=== PATIENT | female | born 1975 | race Caucasian/White ===

== ENCOUNTER 2017-01-29 17:22 | Inpatient (IN) | payer OTHER ==
[~2017-01-29] VITALS: Ht 165.1 cm; Wt 78.2 kg
[2017-01-29] MEDS ORDERED: LAMOTRIGINE25 M3 PO (18:03)
[2017-01-29] MEDS ORDERED: PRAZOSIN HCL2 M1 PO (18:03)
[2017-01-29] MEDS ORDERED: TRAZODONE HCL100 M1 PO (18:03)
[2017-01-29] MEDS ORDERED: LITHIUM CARBON450 M1 PO (18:04)
[2017-01-29] MEDS ORDERED: CLONAZEPAM0.5 M2 PO (18:04)
[2017-01-29] MEDS ORDERED: GABAPENTIN100 M2 PO (18:04)
[2017-01-29] MEDS ORDERED: QUETIAPINE FUMA50 M1 (18:05)
[2017-01-29] MEDS ORDERED: HYDROXYZINE HCL50 M2 (18:05)
[2017-01-29] MEDS ORDERED: BUPROPION XL150 MG (18:05)
[2017-01-29] MEDS ORDERED: GRISEOFULVIN U250 MG PO (18:06)
[2017-01-29] MEDS ORDERED: DAILY MULTIPLE1 EACH PO (18:07)
[2017-01-29] MEDS ORDERED: NICOTINE GUM4 MG PO (18:07)
--- NOTE | 2017-01-29 18:40 | ED PSYCHIATRIC COMPLAINT ---
See Addendum History of Present Illness General Chief Complaint: Psychiatric Related Complaint Stated Complaint: "I DONT FEEL GOOD" PSYCH COMPLAINT -SI/-HI Source: patient Exam Limitations: no limitations Vital Signs & Intake/Output Vital Signs & Intake/Output Vital Signs Date Time Temp Pulse Resp B/P B/P Pulse O2 O2 Flow FiO2 Mean Ox Delivery Rate 01/30 1606 98.8 105 18 119/80 100 Room Air 01/30 1200 97.9 98 18 126/93 98 Room Air 01/30 1013 97.9 99 18 129/69 99 01/30 0800 97.5 92 16 130/75 98 Room Air 01/30 0616 97.0 92 20 118/69 97 Room Air 01/30 0125 97.2 80 20 132/80 100 Room Air 01/29 2149 96.2 76 20 118/70 01/29 1943 97.3 72 20 122/80 01/29 1743 97.6 97 20 136/91 99 Room Air Room Air ED Intake and Output 01/30 0000 01/29 1200 Intake Total Output Total Balance Patient 185 lb Weight Weight Reported by Patient Measurement Method Allergies Coded Allergies: No Known Allergies (01/29/17) Reconcile Medications Bupropion HCl (Bupropion XL) (Unknown Strength) TAB.ER.24H (Unknown Dose) UNKNOWN (Reported) Clonazepam 0.5 MG TABLET 1 TAB PO DAILY NEEDED PRN ANXIETY (Reported) Gabapentin 100 MG CAPSULE 2 CAP PO TID MOOD (Reported) Griseofulvin Ultramicrosize 250 MG TABLET 2 TAB PO DAILY RINGWORM (Reported) Hydroxyzine HCl (hydrOXYzine HCl) (Unknown Strength) TABLET (Unknown Dose) UNKNOWN (Reported) Lamotrigine 25 MG TABLET 1 TAB PO BID MENTAL HEALTH (Reported) Roscoe Carbonate (Roscoe Carbonate ER) 450 MG TABLET.ER 1 TAB PO Q12H MENTAL HEALTH (Reported) Multivitamin (Daily Multiple Vitamin) 1 EACH TABLET 1 TAB PO DAILY SUPPLEMENT (Reported) Nicotine Polacrilex (Nicotine Gum) 4 MG GUM 1 GUM PO Q2H PRN SMOKING CESSATION (Reported) Prazosin HCl 2 MG CAPSULE 1 CAP PO QPM NIGHTMARES (Reported) Quetiapine Fumarate (Unknown Strength) TABLET (Unknown Dose) UNKNOWN ( Reported) Trazodone HCl 100 MG TABLET 2 TAB PO QPM SLEEP (Reported) Triage Note: PT TO ED "MY MEDS ARE NOT WORKING RIGHT NOW, I DON'T FEEL RIGHT", PT UNABLE TO RECALL NAME OF MEDICATIONS. Triage Nurses Notes Reviewed? yes Onset: Abrupt Duration: hour(s): Timing: recent history : No Patient currently breastfeeds: No HPI: 01/29/17 7:26 pm 41-year-old female presents to the emergency department complaining of not taking her meds being depressed and feeling suicidal. The patient states she has a history of bipolar disorder. She denies alcohol or illicit drug use. She does smoke cigarettes. The onset of symptoms have been abrupt, the duration is unclear, the severity is significant as her symptoms required her to come to the emergency department for care. (Param Wheeler DO) Past History Travel History Traveled to [facility] past 21 day No Medical History Any Pertinent Medical History? 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 No (Param Wheeler DO) Review of Systems Review of Systems Constitutional: Denies: fever. EENTM: Reports: no symptoms. Respiratory: Denies: short of breath. Cardiovascular: Reports: no symptoms. GI: Denies: abdominal pain. Genitourinary: Reports: no symptoms. Musculoskeletal: Reports: no symptoms. Skin: Reports: no symptoms. Neurological/Psychological: Reports: no symptoms. Hematologic/Endocrine: Reports: no symptoms. Immunologic/Allergic: Reports: no symptoms. (Param Wheeler DO) Physical Exam Physical Exam General Appearance: well developed/nourished, alert, awake, anxious Head: atraumatic, normal appearance Eyes: Bilateral: normal appearance, PERRL, EOMI. Ears, Nose, Throat: normal pharynx, normal ENT inspection Neck: normal inspection, supple Respiratory: normal breath sounds, chest non-tender Cardiovascular: regular rate/rhythm Gastrointestinal: non-tender Extremities: normal range of motion Neurological/Psychiatric: no motor/sensory deficits, awake, agitated Appearance/Memory/Insight: disheveled Behavoir/Eye Contact/Speech: cooperative Thoughts/Hallucinations: no apparent hallucination Skin: intact, normal color, warm/dry Cleared? (statement below) Yes SAD PERSONS SAD PERSONS Response Value Depression/Hopelessness? yes 2 Previous Attempts/Psych Care yes 1 Rational Thinking Loss? yes 2 Single//? yes 1 Social Support? has no support 1 Stated Future Intent? yes 2 Total 9 SAD PERSONS Done? yes (Param Wheeler DO) Progress Differential Diagnosis: drug intoxication, drug overdose, drug withdrawal Plan of Care: Orders Procedure Date/time Status Regular Diet 01/30 B Active Admit to inpatient 01/30 1726 Active Add-on Test (ER Only) 01/30 1039 Active ED CRISIS PSYCH CONSULT 01/30 0824 Active Continuous Observation Monitor 01/30 0700 Active Continuous Observation Monitor 01/30 0300 Active Continuous Observation Monitor 01/29 2300 Active Add-on Test (ER Only) 01/29 2238 Active LITHIUM 01/30 1940 Complete URINE 01/30 1904 Complete URINE DRUG SCREEN FOR ER ONLY 01/29 190 Complete ETHANOL 01/30 1904 Complete COMPREHENSIVE METABOLIC PANEL 01/30 1904 Complete CBC WITHOUT DIFFERENTIAL 01/30 1904 Complete Continuous Observation Monitor 01/29 190 Active Current Medications Sig/Adeline Start time Last Medication Dose Stop Time Status Admin Prazosin HCl 2 MG QPM 01/30 2200 UNVr (Minipress 2 Mg.) Trazodone HCl 200 MG QPM 01/30 2200 UNVr (Desyrel) Gabapentin 200 MG TID 01/30 2236 UNVr 01/30 (Neurontin) 165 Hydroxyzine HCl 50 MG TID 01/30 2236 UNVr 01/30 (Atarax) 165 Lamotrigine 25 MG BID 01/30 2236 UNVr 01/30 (LaMICtal) 1129 Laboratory Tests 01/29/171939: Anion Gap 10, Estimated GFR > 60, BUN/Creatinine Ratio 15.0, Glucose 86, Calcium 9.2, Total Bilirubin 0.7, AST 25, ALT 38, Alkaline Phosphatase 60, Total Protein 6.4, Albumin 3.8, Globulin 2.6, Albumin/Globulin Ratio 1.5, CBC w Diff NO MAN DIFF REQ, RBC 4.20, MCV 89.6, MCH 30.0, RDW 14.1, MPV 8.2, Gran % 57.6, Lymphocytes % 31.1, Monocytes % 9.4 H, Eosinophils % 1.3, Basophils % 0.6, Absolute Granulocytes 4.6, Absolute Lymphocytes 2.5, Absolute Monocytes 0.8 H, Absolute Eosinophils 0.1, Absolute Basophils 0, PUBS MCHC 33.5, Roscoe < 0.2 L , Serum Alcohol < 10.0 01/29/171917: Urine Opiates Screen < 100.00, Methadone Screen < 40, Barbiturate Screen < 60, Ur Phencyclidine Scrn < 6.00, Amphetamines Screen < 100, U Benzodiazepines Scrn < 85, Urine Cocaine Screen < 50, Urine Cannabis Screen 14.80 01/29/171903: Urine Test NEGATIVE 7:12 AM 01/30 PATIENT SIGNED OUT TO ME BY DR POWER. PENDING CRISIS DISPOSITION. (Alecia Phelan MD) Pre-Hospital EKG: none (Param Wheeler DO) Hand-Off Endorsed To: Alecia Phelan MD Endorsed Time: 0700 Pending: consult (Oracio Power MD) Departure Departure Disposition: STILL A PATIENT Condition: Stable Referrals: Unknown (PCP/Family) Departure Forms: Customer Survey General Discharge Information (Param Wheeler DO) Departure Time of Disposition: 1726 Clinical Impression Primary Impression: Depression Secondary Impressions: Bipolar 1 disorder with moderate trisha Psych Admission Note Psychiatric Admission: I have seen and evaluated NOLAN HERNANDEZ. I have also reviewed all the pertinent lab results and diagnostic results. NOLAN HERNANDEZ will be admitted to our inpatient Psychiatric unit for treatment and care. (Alecia Phelan MD)
[2017-01-29 20:00] LABS: ABSOLUTE BASOPHIL COUNT 0 /CUMM (0.0-0.2); ABSOLUTE EOSINOPHIL COUNT 0.1 /CUMM (0.0-0.7); ABSOLUTE GRANULOCYTE CT 4.6 /CUMM (1.4-6.5); ABSOLUTE LYMPH COUNT 2.5 /CUMM (1.2-3.4); ABSOLUTE MONOCYTE COUNT 0.8 /CUMM (0.10-0.60); BASOPHIL % 0.6 % (0.0-2.0); EOSINOPHIL % 1.3 % (0-5); GRANULOCYTE % 57.6 % (42.2-75.2); HEMATOCRIT 37.6 % (37-47); MEAN CORPUSCULAR HGB CONC 33.5 G/DL (33.0-37.0); MEAN CORPUSCULAR VOLUME 89.6 FL (81.0-99.0); MEAN PLATELET VOLUME 8.2 FL (7.4-10.4); PLATELET COUNT 343 /CUMM (130-400); RBC DISTRIBUTION WIDTH 14.1 % (11.5-14.5); WHITE BLOOD CELL COUNT 8.1 /CUMM (4.8-10.8)
[2017-01-29 22:46] LABS: LITHIUM < 0.2 mmol/L (0.6-1.2)
--- NOTE | 2017-01-30 10:33 | ED PSYCH CRISIS CONSULTATION ---
Crisis Consult Basic Assessment Date of Consult: 01/30/17 Responsible Person/Accompanied By: Presented self Insurance Authorization: Insurance #1: Insurance name: ALDO Julian C&A Phone number: Policy number: [id number] Group number: Authorization number: ED Provider: Patient's ED Provider: Alecia Phelan MD Primary Care Physician: Patient's PCP: Emely Harrisugatuck Current Psychiatrist: Has not seen Belle GreenJAYCE since 12/2014; no show for appt 01/26/17 Chief Complaint: Psychiatric Related Complaint Patient's Quote: "I felt the meds I take could be working better." Present Illness: 41 F presented herself to the ED 01/29/17 @ 1748 with a CC of medication vcomplaint, but also admitting suicidal ideation and non-specific hallucinations. She reports that she has not been taking her lithium, feeling alternately delusional and depressed. "I have tried a lot of medications, some worked, some didn't, but I stopped them because I'm bipolar." Potassium 3.3 solange be repleted, per Dr. Phelan. Reports depression 10/10, anxiety 10/10; the most severe in both cases. Endorses hopelessness, helplessness, worthlessness and guilt feelings ("I'm hard on myself.") Denies use of alcohol and drugs, then changes her mind. No treatment for same, but then changes her mond and reports [facility] about one year ago. Reports clean and sober since. She is single and has a daughter, 16, Eric, who lives with her father. The patient has not been living with them. She reports she has an apartment, but reverses herself three times, finally settling on homeless and living in her car. 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 She states that she wants to get into a program, but admits she does not follow through. She also reports nightmares related to her childhood, and states that prazosin helps. She cannot specify the trauma, but states that she was not raped. She also says that she says this to get attention sometimes. "I thought I had a tough life, but it wasn't." On non-adherence, she states, "I don't write things down and do them." Grade school was "jeannie good," and her grades were good. She dropped out of high school in her sophomore year, but cannot state the reason. She reports she is sexually active, but has had a tubal ligation years ago. She feels safe here. She reports that she has been on a lot of medications. She reports" Trazodone 200 mg PO q HS Prazosin 2 mg PO q HS [place] - does not take, thinks it may make her throat swell, "but maybe that's my thyroid?" Lamictal 25 mg Grisofulvin for ringworm Clonazepam - "I could not refill it because I lost my license." Gabapentin 100 mg PO TID She no longer takes: Bupropion XL ("For my OCD, but I don't have it.") Seroquel Zoloft ("For my OCD, but I don't have it.") Latuda - "I did not give it a chance to work." Collateral: 1. BELLE GREEN, JAYCE, [address] [place] [phone], , . He last saw her 01/29/2015. The patient and the high school social science teacher at [facility] had called him to make an appointment for 01/26/2017, but the patient was a no show/no call. He may consider taking her back into his practice. 2. Sugar Marquez, mother, . The phone has been busy, but we will continue to call. 3. Prashant Marquez, , an RN, who previously worked in behavioral health. He reports that the patient had her first suicide attempt while staying with their mother in [place], and was hospitalized at [facility] from approximately 01/14/17 through 01/21/17. Prior to this hospitalization, she had had other psychiatric admissions. While at her mother's house, would not get out of bed. She has a history of alcoholism ("Huge"), heroin and cocaine abuse. While at [facility], she had been discharged from an [facility] , due to positive cocaine screen. She has been in and out of programs since the middle of October 2016. She is "textbook" borderline, has OCD and presents with mild paranoid schizophrenia, complaining of people and helicopters following her. She is usually admitted to psychiatric hospitals for drugs. The family has been trying for ten years, but she is impulsive and not future- oriented. They do not have a cousin Ishaan, which the patient wanted to list as the person to contact, but could not recall a last name or a phone number. Patient's Address: The patient reports she is homeless. [address] [place] [address] Other Phone Number: Who Do You Live With? Patient/Self (Homeless, living in car.) Family/Informants Interviewed: Prashant, brother. Allergies - Coded Allergies: No Known Allergies (01/29/17) Current Medications - Scheduled Medications Gabapentin 100 MG CAPSULE 2 CAP PO TID MOOD #84 (Reported) Entered as Reported by Klarissa Prather on 01/29/17 180 Griseofulvin Ultramicrosize 250 MG TABLET 2 TAB PO DAILY RINGWORM #28 ( Reported) Entered as Reported by Klarissa Prather on 01/29/17 180 Lamotrigine 25 MG TABLET 1 TAB PO BID MENTAL HEALTH #28 (Reported) Entered as Reported by Klarissa Prather on 01/29/17 180 [place] Carbonate ([place] Carbonate ER) 450 MG TABLET.ER 1 TAB PO Q12H MENTAL HEALTH #28 (Reported) Entered as Reported by Klarissa Prahter on 01/29/17 180 Multivitamin (Daily Multiple Vitamin) 1 EACH TABLET 1 TAB PO DAILY SUPPLEMENT (Reported) Entered as Reported by Klarissa Prather on 01/29/17 180 Prazosin HCl 2 MG CAPSULE 1 CAP PO QPM NIGHTMARES #14 (Reported) Entered as Reported by Klarissa Prather on 01/29/171802 Trazodone HCl 100 MG TABLET 2 TAB PO QPM SLEEP #28 (Reported) Entered as Reported by Klarissa Prather on 01/29/17 180 Scheduled PRN Medications Clonazepam 0.5 MG TABLET 1 TAB PO DAILY NEEDED PRN ANXIETY #7 (Reported) Entered as Reported by Klarissa Prather on 01/29/17 1804 Nicotine Polacrilex (Nicotine Gum) 4 MG GUM 1 GUM PO Q2H PRN SMOKING CESSATION #100 (Reported) Entered as Reported by Klarissa Prather on 01/29/17 1807 Miscellaneous Medications Bupropion HCl (Bupropion XL) (Unknown Strength) TAB.ER.24H (Unknown Dose) UNKNOWN #30 (Reported) Entered as Reported by Klarissa Prather on 01/29/17 1805 Hydroxyzine HCl (hydrOXYzine HCl) (Unknown Strength) TABLET (Unknown Dose) UNKNOWN #30 (Reported) Entered as Reported by Klarissa Prather on 01/29/17 180 Quetiapine Fumarate (Unknown Strength) TABLET (Unknown Dose) UNKNOWN #30 ( Reported) Entered as Reported by Klarissa Prather on 01/29/171804 Laboratory Results: Laboratory Tests 01/29/170: Anion Gap 10, Estimated GFR > 60, BUN/Creatinine Ratio 15.0, Glucose 86, Calcium 9.2, Total Bilirubin 0.7, AST 25, ALT 38, Alkaline Phosphatase 60, Total Protein 6.4, Albumin 3.8, Globulin 2.6, Albumin/Globulin Ratio 1.5, CBC w Diff NO MAN DIFF REQ, RBC 4.20, MCV 89.6, MCH 30.0, RDW 14.1, MPV 8.2, Gran % 57.6, Lymphocytes % 31.1, Monocytes % 9.4 H, Eosinophils % 1.3, Basophils % 0.6, Absolute Granulocytes 4.6, Absolute Lymphocytes 2.5, Absolute Monocytes 0.8 H, Absolute Eosinophils 0.1, Absolute Basophils 0, PUBS MCHC 33.5, [place] < 0.2 L , Serum Alcohol < 10.0 01/29/17 1918: Urine Opiates Screen < 100.00, Methadone Screen < 40, Barbiturate Screen < 60, Ur Phencyclidine Scrn < 6.00, Amphetamines Screen < 100, U Benzodiazepines Scrn < 85, Urine Cocaine Screen < 50, Urine Cannabis Screen 14.80 01/29/171903: Urine Test NEGATIVE Past History Past Medical History Neurological: NONE EENT: NONE Cardiovascular: NONE Respiratory: asthma Gastrointestinal: NONE Hepatic: NONE Renal: NONE Musculoskeletal: NONE Psychiatric: anxiety, bipolar disease, depression Endocrine: NONE Blood Disorders: NONE Cancer(s): NONE 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: Patient reports tubal ligation, date unknown Past Surgical History Surgical History: non-contributory Psychosocial History Strengths/Capabilities: Supportive brother, she is asking for help Physical Limitations (Interventions): None Psychiatric Treatment History Psych Treatment Psychiatric Treatment Yes Inpatient Treatment Yes Outpatient Treatment Yes Location of Treatment Inpatient: [facility] X 2 Reason for Treatment Suicide attempt Dates of Treatment 01/21/17 Response to Treatment Unknown, but did not follow up Diagnosis by History: Bipolar Borderline traits OCD Cocaine use d/o Alcohol use d/o Opiate use d/o Substance Use/Abuse History Drug Use/Abuse Substances Used/Abused Yes Substance Used/Abused Alcohol First Use Not evaluated Last Used Patient reports one year ago Substance Abuse Treatment Substance Abuse Treatment Past Substance Abuse TX Yes Inpatient Treatment Yes Outpatient Treatment Yes Location of Treatment Inpatient: [facility] Outpt: IOP at [facility]. Reason for Treatment Alcohol use d/o, "drugs" Dates of Treatment 2015 Response to Treatment Pt reports she has been clean and sober (Brother reports she was let go from an IOP in 2016.) Current Mental Status Mental Status Orientation: Person, Place, Situation Affect: Constricted, Depressed, Hopeless, Labile Speech: Delayed, Evasive Neuro-vegetative: Anhedonia, Energy Decreased, Helpless Appearance Appearance- Dress/Hygiene: Hair dissheveled Behaviors Thought Process: Disorganized Thought Content: Confabulations, Delusions, Thought Blocking Memory: Impaired Insight: Poor SI/HI Risk Assessment Past Suicidal Ideation/Attempts Yes Current Suicidal Ideation/Att No Past Homicidal Ideation/Att: No Current Homicidal Ideation/Attempts No Degree of Intent: None Danger To: Self Gravely Disabled: Lack of Insight, Poor Impulse Control, Poor Judgment Risk Factors: high anxiety/distress, history of suicide atmpts, SA/MH hospitalized, substance abuse, isolate/no social support, poor impulse control, lives alone, limited support Lethality Ratin PTSD Checklist PTSD Done? pt unable to participate ED Management Sitter: Yes Restraints: No DSM5/PS Stressors/Medical Prob Diagnosis' (DSM 5, Stressors, Medical): F39 Mood d/o, unspecified Current GAF: 27 Departure Disposition Psych Medical Clearance Date: 01/30/17 Time Started: 914 Time Ended: 914 Psychiatrist Consulted: Avis Mcdaniels MD Date Disposition Established: 01/30/17 Time Disposition Established: 1015 Plan for Disposition - Modality: Inpatient Psychiatry Facility: [facility] Rationale for Disposition: Confused, off medications, psychotic and suicidal on presentation. Recent suicide attempt and no follow up after hospitalization. Family is concerned for her safety. Type of IP Admission: PEC Additional Instructions: Prashant, her brother, will be available for family meeting and other help, as needed. A referral has been emailed to Michelle Doe at [facility] on 01/30/17. Referrals Belle Green APRN, MD,Axel
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
[2017-01-30 19:38] VITALS: BP 120/78
[2017-01-31 08:07] VITALS: BP 105/66
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
[2017-01-31 12:07] VITALS: BP 117/71
--- NOTE | 2017-01-31 12:14 | CPS PROVIDER INIT ASMT PSYCH ---
Psychiatric Admission Store Associate's Note Reviewed: Yes Patient Seen and Examined: Yes Identifying Information: 41F Chief Complaint: "I thought my meds weren't working so I stopped a lot of them" Reaction to Hospitalization: positive History of Present Illness Onset of Illness: years ago Circumstances Leading to Admission: worsening depression Problem(s) Justifying Need for Admission: depression and SI Other HPI: Pt reports increased depression as well as paranoia (people following her). She denies AVHs but notes that they did occur in the past. She reports forgetting to take her meds. Three weeks ago she took an overdose of her medications and was hospitalized. Her mother cut off contact with her over the SA and OD. Pt denies TRS. Denies SI or HI currently. Past Psychiatric History Past Diagnosis(es)- if any: Bipolar disorder with psychotic features AUD, in remission Past Precipitating Factors- if any: recent homelessness and difficulties with medication compliance - Include inpatient and outpatient treatment Treatment History: hospitalized 2x in the past 6mo, most recent was three weeks ago s/p overdose History of Suicide Attempts or Gestures multiple attempts, most recent three weeks ago Substance Abuse History: tob: 4 cigs/d, up to 1ppd recently alcohol: past heavy use, no alcohol for 1yr illicits: tried crack a few times, did not like Allergies: Coded Allergies: No Known Allergies (01/29/17) Home Med List: see hx - Include any medical condition(s) that may - impact the patient's recovery/remission Past Medical History: see hx Past History Medical History Neurological: NONE EENT: NONE Cardiovascular: NONE Respiratory: asthma Gastrointestinal: NONE Hepatic: NONE Renal: NONE Musculoskeletal: NONE Psychiatric: anxiety, bipolar disease, depression Endocrine: NONE Blood Disorders: NONE Cancer(s): NONE 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: Patient reports tubal ligation, date unknown Isolation History: Standard Surgical History Surgical History: TUBAL LIGATION Psychiatric Family/Social Hx Family History Psychiatric Illness: mother with depression and anxiety Substance Use: denied Suicides: multiple cousins Social History Living Situation: currently homeless Significant Relationships (family/friends): with family, upset with her s/p OD Education: quit HS at 10th grade 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 - #1 Recognizing dangerous situations. - #2 Coping Skills. - #3 Basic information about quitting. Status of Tobacco Cessation Counseling: #1, #2 AND #3 Completed Cessation Med Status Nicotine Patch Ordered Alcohol Screening - ETOH screen POS if BAL >=80 or Audit-C>= M4/F3 Audit-C Score from Diag Assess: 0 Blood Alcohol Level: Laboratory Tests 01/30 1940 Toxicology Serum Alcohol (<10 MG/DL) < 10.0 Alcohol Use Screening Results: Neg per Audit C &/or BAL - If ETOH counseling indicated - the following topics are required. - #1 Express concern about the patient's - drinking at unhealthy levels, include informing - of national norms for moderate drinking: - men <= 14 drinks/week, max 4 drinks/occasion - women <= 7 drinks/week, max 3 drinks/occasion - #2 Providing feedback, including linking alcohol to - negative physical effects (liver injury, hypertension) - negative emotional effects (relationship problems and - depression) - negative occupational consequences (reduced work - performance) - #3 Advising the patient to abstain from alcohol or - to drink below national norms for moderate drinking - (as listed above). Status of ETOH Use Counseling: N/A B/C NO ETOH Use Metabolic Screening - Screen if on a Neuroleptic Medication - Metabolic screening should include: - Blood Pressure, BMI, Glucose or Hgb A1c, & a - Lipid profile from within the past 365 days. Metabolic Screening Laboratory Tests 01/29 Chemistry Sodium (137 - 145 mmol/L) 138 Potassium (3.5 - 5.1 mmol/L) 3.3 L Chloride (98 - 107 mmol/L) 102 Carbon Dioxide (22 - 30 mmol/L) 26 Anion Gap (5 - 16) 10 BUN (7 - 17 mg/dL) 9 Creatinine (0.5 - 1.0 mg/dL) 0.6 Estimated GFR (>60 ml/min) > 60 BUN/Creatinine Ratio (7 - 25 %) 15.0 Glucose (65 - 99 mg/dL) 86 Calcium (8.4 - 10.2 mg/dL) 9.2 Total Bilirubin (0.2 - 1.3 mg/dL) 0.7 AST (14 - 36 U/L) 25 ALT (9 - 52 U/L) 38 Alkaline Phosphatase (<127 U/L) 60 Total Protein (6.3 - 8.2 g/dL) 6.4 Albumin (3.5 - 5.0 g/dL) 3.8 Globulin (1.9 - 4.2 gm/dL) 2.6 Albumin/Globulin Ratio (1.1 - 2.2 %) 1.5 Hematology CBC w Diff NO MAN DIFF REQ WBC (4.8 - 10.8 /CUMM) 8.1 RBC (4.20 - 5.40 /CUMM) 4.20 Hgb (12.0 - 16.0 G/DL) 12.6 Hct (37 - 47 %) 37.6 MCV (81.0 - 99.0 FL) 89.6 MCH (27.0 - 31.0 PG) 30.0 RDW (11.5 - 14.5 %) 14.1 Plt Count (130 - 400 /CUMM) 343 MPV (7.4 - 10.4 FL) 8.2 Gran % (42.2 - 75.2 %) 57.6 Lymphocytes % (20.5 - 51.1 %) 31.1 Monocytes % (1.7 - 9.3 %) 9.4 H Eosinophils % (0 - 5 %) 1.3 Basophils % (0.0 - 2.0 %) 0.6 Absolute Granulocytes (1.4 - 6.5 /CUMM) 4.6 Absolute Lymphocytes (1.2 - 3.4 /CUMM) 2.5 Absolute Monocytes (0.10 - 0.60 /CUMM) 0.8 H Absolute Eosinophils (0.0 - 0.7 /CUMM) 0.1 Absolute Basophils (0.0 - 0.2 /CUMM) 0 PUBS MCHC (33.0 - 37.0 G/DL) 33.5 Toxicology Urine Opiates Screen (>2000 NG/ML) < 100.00 Methadone Screen (>300 NG/ML) < 40 Barbiturate Screen (>200 NG/ML) < 60 Ur Phencyclidine Scrn (>25 NG/ML) < 6.00 Amphetamines Screen (>1000 NG/ML) < 100 U Benzodiazepines Scrn (>200 NG/ML) < 85 [place] (0.6 - 1.2 mmol/L) < 0.2 L Urine Cocaine Screen (>300 NG/ML) < 50 Urine Cannabis Screen (>50 NG/ML) 14.80 Serum Alcohol (<10 MG/DL) < 10.0 Urines Urine Test NEGATIVE Exam and Plan Mental Status Examination Ambulation Status: freely walking Appearance: good hygiene Attitude towards examiner: cooperative Psychomotor activity: no retardation or agtiation Behavior: cooperative though evasive at times Quality of speech: nl r/r/p/v Affect: irritable, congruent, constricted, non-labile Mood: "depressed" Suicidal Ideation: denied Homicidal Ideation: denied Hallucinations: denied Paranoid/Delusional Material: ++ people following her, stopped at hospitalization Difficulties with thought organization: slowed, no thought blocking Insight: poor Judgment: limited Orientation: a/o x4 Cognition: grossly intact though slowed Memory Function: grossly intact Estimate of intellectual functioning: grossly intact Assets/Strengths Patient Identified Assets/Strengths: able to communicate Impression/Plan Impression and Plan: Pt with bipolar disorder with some paranoia recently in the setting of questionable medication compliance and conflict with family leading to homelessness. - Include all active medical diagnosis that require tx DSM 5 Diagnosis(es): Bipolar disorder wiht psychotic features AUD, in remission - Initial Tx Plan for Active Psych & Medical Conditions Treatment Plan: - continue home meds - needs SW around newly homeless - may benefit from family meeting - Factors that would help patient function - in a less restrictive setting. Factors: increased support
[2017-01-31 16:47] VITALS: BP 131/79
--- NOTE | 2017-01-31 17:13 | History & Physical ---
General Information and HPI History of Present Illness: 41F bipolar disorder admitted to [facility] with severe anxiety and depression. Patient is taking Griseofulvin for ringworm. She appears pleasant and well. She has no physical complaints and feels well. Eating well, no pain, normal urine and BM. No neurological complaints. Allergies/Medications Allergies: Coded Allergies: No Known Allergies (01/29/17) Home Med list Gabapentin 100 MG CAPSULE 2 CAP PO TID MOOD (Reported) Hydroxyzine HCl (hydrOXYzine HCl) (Unknown Strength) TABLET (Unknown Dose) UNKNOWN (Reported) Lamotrigine 25 MG TABLET 1 TAB PO BID MENTAL HEALTH (Reported) Crivitz Carbonate (Crivitz Carbonate ER) 450 MG TABLET.ER 1 TAB PO Q12H MENTAL HEALTH (Reported) Multivitamin (Daily Multiple Vitamin) 1 EACH TABLET 1 TAB PO DAILY SUPPLEMENT (Reported) Nicotine Polacrilex (Nicotine Gum) 4 MG GUM 1 GUM PO Q2H PRN SMOKING CESSATION (Reported) Prazosin HCl 2 MG CAPSULE 1 CAP PO QPM NIGHTMARES (Reported) Quetiapine Fumarate (Unknown Strength) TABLET (Unknown Dose) UNKNOWN ( Reported) Trazodone HCl 100 MG TABLET 2 TAB PO QPM SLEEP (Reported) Past History Travel History Traveled to [facility] past 21 day No Medical History Neurological: NONE EENT: NONE Cardiovascular: NONE Respiratory: asthma Gastrointestinal: NONE Hepatic: NONE Renal: NONE Musculoskeletal: NONE Psychiatric: anxiety, bipolar disease, depression Endocrine: NONE Blood Disorders: NONE Cancer(s): 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 EENTM: Reports: no symptoms. Cardiovascular: Reports: no symptoms. Respiratory: Reports: no symptoms. GI: Reports: no symptoms. Genitourinary: Reports: no symptoms. Musculoskeletal: Reports: no symptoms. Skin: Reports: no symptoms. Neurological/Psychological: Reports: no symptoms. Hematologic/Endocrine: Reports: no symptoms. Immunologic/Allergic: Reports: no symptoms. All Other Systems: Reviewed and Negative Exam & Diagnostic Data Last 24 Hrs of Vital Signs/I&O Vital Signs Date Time Temp Pulse Resp B/P B/P Pulse O2 O2 Flow FiO2 Mean Ox Delivery Rate 01/31 1647 99 131/79 01/31 1207 100 117/71 01/31 0807 97.6 69 105/66 01/30 2220 98.4 104 18 120/78 01/30 1938 98.4 104 120/78 Intake & Output 01/31 1600 01/31 0800 01/31 0000 Intake Total Output Total Balance Patient 78.245 kg Weight Physical Exam General Appearance Alert, Oriented X3 HEENT Atraumatic, Mucous Membr. moist/pink Neck Supple Cardiovascular Regular Rate Lungs Clear to Auscultation Abdomen Soft, No Tenderness Neurological Exam Findings: Normal Gait, Normal Speech Cranial Nerves II through XII: Grossly normal Extremities No Cyanosis, No Edema Vascular Normal Pulses Last 24 Hrs of Labs/Poncho: Microbiology 01/31 1200 URINE ROUT: GC DNA Probe - ORD 01/31 1200 URINE ROUT: Chlamydia DNA Probe (PONCHO) - ORD Assessment/Plan Assessment: 41F PMH bipolar disorder admitted to [facility] with anxiety and depression and no acute medical issues. Plan - Management by psychiatry - Continue Griseofulvin - Reconsult if necessary As Ranked By This Provider Problem List: 1. Depression 2. Bipolar 1 disorder with moderate trisha Miscellaneous Miscellaneous Documentation Attending Case Discussed With: Aurelia Duggan MD Primary Care Physician: Unknown Patient sees these Specialists None Level of Patient Care: [facility]
[2017-01-31 20:01] VITALS: BP 127/75
[2017-01-31 21:50] VITALS: BP 127/77
[2017-02-01 08:13] VITALS: BP 116/74
[2017-02-01 10:13] LABS: LITHIUM < 0.2 mmol/L (0.6-1.2)
--- NOTE | 2017-02-01 11:53 | CP SOUTH PROGRESS NOTE PSYCH ---
Psych (Inpt) Progress Note Progress Note Include the following elements, when applicable: Involvement in the active treatment of the patient with behavioral observations of the patient and the patient's response to the treatment. Review of the ongoing treatment process in the context of the treatment plan. Indication of how multi-disciplinary staff members are carrying out the treatment plan. Plans for future interventions and recommendations for revision of the treatment plan. Liaison with other physicians/providers. Progress Note: Pt reports that she is certain that she is having an "allergic" reaction to the lithium. She feels that throat hurts and having some nausea. Refusing to take anymore. Previously on latuda with good effect. Also noted that having flare of genital herpes and requesting valtrex. She is conflicted about her discharge planning. She does not want to go to a long term because not sure what she would be doing during the day, but her brother feels that long term is the best choice for her. She spoke at length about poor descisions she has made a various times in her life. Denies SI or HI. No paranoia or psychotic sx. Current Medications Sig/Adeline Start time Last Medication Dose Route Stop Time Status Admin Acetaminophen 650 MG Q8P PRN 01/31 1830 AC 02/01 PO 0812 Gabapentin 200 MG TID 01/29 2236 AC 02/01 PO 0812 Hydroxyzine HCl 50 MG Q8P PRN 01/31 1145 AC 01/31 PO 2254 Lamotrigine 25 MG BID 01/29 2236 AC 02/01 PO 0812 [place] Carbonate 450 MG Q12H 01/30 2200 DC 01/31 PO 0808 Multivitamins 1 TAB DAILY 01/31 1000 AC 02/01 Therapeutic PO 0812 Nicotine 14 MG DAILY 01/31 1152 AC 02/01 TOP 0813 Nicotine 4 MG Q2H PRN 01/30 2200 AC 01/30 PO 2222 Non-Formulary 0 SEE ADMIN CRITERIA 02/01 1200 UNVr Medication ANY Non-Formulary 0 SEE ADMIN CRITERIA 01/31 0045 UNVr Medication ANY Ondansetron HCl 4 MG Q8P PRN 01/31 1200 AC PO Prazosin HCl 2 MG QPM 01/30 2200 AC 01/31 PO 2227 Trazodone HCl 200 MG QPM 01/30 2200 AC 01/31 PO 2227 Valacyclovir HCl 500 MG BID 02/01 1147 UNVr PO 02/03 2201 Laboratory Tests 02/01 01/29 0632 1940 Chemistry Sodium (137 - 145 mmol/L) 138 Potassium (3.5 - 5.1 mmol/L) 3.3 L Chloride (98 - 107 mmol/L) 102 Carbon Dioxide (22 - 30 mmol/L) 26 Anion Gap (5 - 16) 10 BUN (7 - 17 mg/dL) 9 Creatinine (0.5 - 1.0 mg/dL) 0.6 Estimated GFR (>60 ml/min) > 60 BUN/Creatinine Ratio (7 - 25 %) 15.0 Glucose (65 - 99 mg/dL) 86 Calcium (8.4 - 10.2 mg/dL) 9.2 Total Bilirubin (0.2 - 1.3 mg/dL) 0.7 AST (14 - 36 U/L) 25 ALT (9 - 52 U/L) 38 Alkaline Phosphatase (<127 U/L) 60 Total Protein (6.3 - 8.2 g/dL) 6.4 Albumin (3.5 - 5.0 g/dL) 3.8 Globulin (1.9 - 4.2 gm/dL) 2.6 Albumin/Globulin Ratio (1.1 - 2.2 %) 1.5 Vitamin B12 (239 - 931 pg/mL) 719 TSH &T3 &Free T4 Intrp (0.270 - 4.20 uIU/mL) 1.670 Hematology CBC w Diff NO MAN DIFF REQ WBC (4.8 - 10.8 /CUMM) 8.1 RBC (4.20 - 5.40 /CUMM) 4.20 Hgb (12.0 - 16.0 G/DL) 12.6 Hct (37 - 47 %) 37.6 MCV (81.0 - 99.0 FL) 89.6 MCH (27.0 - 31.0 PG) 30.0 RDW (11.5 - 14.5 %) 14.1 Plt Count (130 - 400 /CUMM) 343 MPV (7.4 - 10.4 FL) 8.2 Gran % (42.2 - 75.2 %) 57.6 Lymphocytes % (20.5 - 51.1 %) 31.1 Monocytes % (1.7 - 9.3 %) 9.4 H Eosinophils % (0 - 5 %) 1.3 Basophils % (0.0 - 2.0 %) 0.6 Absolute Granulocytes (1.4 - 6.5 /CUMM) 4.6 Absolute Lymphocytes (1.2 - 3.4 /CUMM) 2.5 Absolute Monocytes (0.10 - 0.60 /CUMM) 0.8 H Absolute Eosinophils (0.0 - 0.7 /CUMM) 0.1 Absolute Basophils (0.0 - 0.2 /CUMM) 0 PUBS MCHC (33.0 - 37.0 G/DL) 33.5 Serology Hepatitis C Antibody (NONREACTIVE) NONREACTIVE HIV 1&2 Ab Western Blot (NONREACTIVE) NONREACTIVE Toxicology [place] (0.6 - 1.2 mmol/L) < 0.2 L < 0.2 L Serum Alcohol (<10 MG/DL) < 10.0 01/29 01/29 191 1904 Toxicology Urine Opiates Screen (>2000 NG/ML) < 100.00 Methadone Screen (>300 NG/ML) < 40 Barbiturate Screen (>200 NG/ML) < 60 Ur Phencyclidine Scrn (>25 NG/ML) < 6.00 Amphetamines Screen (>1000 NG/ML) < 100 U Benzodiazepines Scrn (>200 NG/ML) < 85 Urine Cocaine Screen (>300 NG/ML) < 50 Urine Cannabis Screen (>50 NG/ML) 14.80 Urines Urine Test NEGATIVE Vital Signs Date Time Temp Pulse Resp B/P B/P Pulse O2 O2 Flow FiO2 Mean Ox Delivery Rate 02/01 813 97.7 109 116/74 01/31 2227 93 127/77 01/31 2150 96.2 93 127/77 01/31 2001 97.9 96 127/75 01/31 1647 99 131/79 01/31 1207 100 117/71 MSE General appearance: good hygiene and grooming; Attitude: cooperative; Eye contact: appropriate; Movement: + psychomotor agitation, mild; Speech: nl fluency, nl rate/rhythm, nl volume, nl prosody; Mood: "I don't know" Affect: sad, irritable, flat, appropriate, constricted, non-labile, congruent; Thought process: linear and goal-directed; Thought content: denied SI or HI, no paranoid ideation; Perception: denied hallucinations- auditory, visual, does not appear to be responding to internal stimuli; I/J: limited A/P: Pt with bipolar disorder with worsening depression recently. - As pt does not to take lithium due to ?side effects, discontinued - Started latuda at 40mg nightly - Valtrex started for outbreak -Continue current medication regimen -Encourage integration into the milieu
[2017-02-01 12:26] VITALS: BP 129/79
[2017-02-01 15:43] VITALS: BP 133/69
[2017-02-01 19:53] VITALS: BP 111/64
[2017-02-02 07:56] VITALS: BP 136/78
[2017-02-02 12:23] VITALS: BP 141/81
--- NOTE | 2017-02-02 14:48 | SOCIAL WORKER PROG NOTE PSYCH ---
Social Work Progress Note Progress Note Lilly talked about a pattern of not taking her medications properly - skipping days at a time. She then starts becoming delusional and paranoid that someone is out to harm her or her family. She said she was hospitalized at [facility] about 3 weeks ago due to a suicide attempt. She had been staying with her Mom and Step Father at their house and took an overdose of medication. Her Mom then called for an ambulance. She said after the hospitalization she was supposed to go to the IOP, but she stopped taking her medication. It was difficult to follow some of the timeframes for things, because it sounds like she has been a bit transient staying from one place to another between family and friends. One of the reasons for non-med compliance is fear of weight gain or other side effects. She wants to go back on Latuda. She also reported making a poor decision from the hospital and had trusted someone she shouldn't had trusted. She stated that she met someone in the hospital (a male) and she ended up going to stay with this person and she stated it wasn't a safe situation. She said she tends to do this kind of thing on and off. She said her thoughts of paranoia often come in waves. She often feels confused/ thoughts get disorganized. Sleep and appetite are okay per her report. She has a hx of Bipolar D/O since after the of her daughter 16 years ago. 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 She would like to eventually go back to work. She feels that going back to her Mom's and StepFather's house in [place] would be the best thing for her. She is open to VNS and likes the idea for med compliance. She signed releases for Family and friends. Denies any SI/ HI today. Reported feeling sad about missing her family this morning. She wants to be "home." Home to her is her Mom's place. She is open to having a family meeting. She is also interested in an IOP, close to her Mom's home if accepted back there. I attempted to have her sign in voluntarily to the unit. Per her presentation she is accepting of help and wants help. She had a hard time making that decision and stared at the form for several minutes. I explained the difference between PEC and voluntary, but she was confused and stated she wanted to talk to her best friend and that she has a hard time making decisions.
--- NOTE | 2017-02-02 15:55 | CP SOUTH PROGRESS NOTE PSYCH ---
Psych (Inpt) Progress Note Progress Note Include the following elements, when applicable: Involvement in the active treatment of the patient with behavioral observations of the patient and the patient's response to the treatment. Review of the ongoing treatment process in the context of the treatment plan. Indication of how multi-disciplinary staff members are carrying out the treatment plan. Plans for future interventions and recommendations for revision of the treatment plan. Liaison with other physicians/providers. Progress Note: Medication list reviewed. Dr. Lan's notes reviewed. Case and treatment plan discussed in team meeting. Staff reports that the patient is very vague. Appearing depressed. Refused lithium. Insisted on Latuda. Wants Neurontin dose corrected from 200 mg to 300 mg. Patient seen at 12:47 PM. The patient is a 41-year-old single white woman admitted on 01/30/17 on a PEC from [facility] emergency room. Apparently the patient presented with suicidal ideation, nonspecific hallucinations and feeling alternately delusional and depressed. She apparently has a history of bipolar disorder. The patient currently has nasal congestion. She is dressed in all black clothing. Ambulates without difficulty. Appears mildly overweight. Reports she presented to the emergency room feeling a little suicidal and a little delusional. She felt people were after her. Patient apparently was at [facility] as an inpatient several weeks ago and was discharged to [facility] in [place]. She then took an overdose of all of her pills, including Depakote, Wellbutrin, Atarax and Zoloft. She was admitted again to [facility] after the overdose. While she had been staying with her mother and stepfather, the overdose reportedly "freaked them out" and reportedly they didn't want her home. Patient reports that her mother has been refusing calls but states that her brother has been talking with her. Patient recently missed an appointment with outpatient prescriber, Eliu Guardado APRN. She would like to return to treatment with him. She would like to move back to [place]. Apparently patient came to this area because she hooked up with someone in [place] and she regrets that decision. Patient's affect is calm and euthymic. Reports mood is okay. She is feeling a little depressed because she misses her family. Rates sad mood 10/10. States anxiety is like a 5/10. Denies feeling hopeless, helpless or worthless. She does feel guilty for not being able to trust her family. States she alienated herself from them because of her disorder. Reports that she trusts people whom she should not trust. Denies active and passive suicidal ideation. Denies homicidal ideation. Denies auditory and visual hallucinations. Denies paranoid ideation but states she feels safer in the hospital. Denies magical duffy. The patient is oriented times 3. Reports sleep is pretty good. Appetite is really good. Reports energy is generally good also. She wants to be back on Latuda again. Wants Neurontin dose changed back to 300 mg. IMPRESSION: Bipolar disorder, mixed, with psychotic features. Hx alcohol, cocaine and heroin use. Slow progress. Continue present treatment plan. More information is needed from collaterals. We will likely discharge the patient later this week to the [facility] with referral back to Eliu Guardado APRN.
[2017-02-02 16:00] VITALS: BP 130/71
[2017-02-02 19:53] VITALS: BP 133/76
[2017-02-03 07:55] VITALS: BP 145/90
--- NOTE | 2017-02-03 10:07 | SOCIAL WORKER PROG NOTE PSYCH ---
Social Work Progress Note Progress Note NOLAN HERNANDEZ [id number] 1975 NOLAN HERNANDEZ [id number] Pended Authorization # Client Authorization # Type of Request [id number] CONCURRENT Date of Admission/ Start of Services Requested From Submission Date 01/30/2017 02/03/2017 02/03/2017
--- NOTE | 2017-02-03 11:30 | SOCIAL WORKER PROG NOTE PSYCH ---
Social Work Progress Note Progress Note Had difficulty connecting with Lilly's Mother. Asked Lilly to check the phone number that was being called. She shared that the number on the facesheet was incorrect as it was not a [facility] area code and it is [phone]. I was able to get a voicemail and leave a message. Received a voicemail back from Lilly's Mother Sugar stating that Lilly is not allowed to return to their home, they are elderly and can't help her anymore and it's causing them stress. Additionally, they are not interested in participating in a family meeting. I then received a voicemail from Lilly's Brother Prashant [phone] who stated he would like to discuss her care. Returned his call and left a voicemail. Lilly was informed of the above information. She was quite sullen when she heard the news about her Mother's response. She was disappointed and I think feeling rejected. She stated that she wishes to speak with her Mom and was hoping to do so. She thought by talking to her she would be able to convince her in some way. I told her that it sounded like her parents need time and space right now. She said she will attempt to call a couple of good friends. She doesn't have everyone's number and so getting numbers may be problematic. Tried to help her stay positive. She said she had been having a good day up until now. She is hoping to discharge in the next day or so. I told her if we can get a place for her to stay we will set up her discharge. She is looking to make calls tonight.
[2017-02-03 12:14] VITALS: BP 135/68
--- NOTE | 2017-02-03 14:34 | CP SOUTH PROGRESS NOTE PSYCH ---
Psych (Inpt) Progress Note Progress Note Include the following elements, when applicable: Involvement in the active treatment of the patient with behavioral observations of the patient and the patient's response to the treatment. Review of the ongoing treatment process in the context of the treatment plan. Indication of how multi-disciplinary staff members are carrying out the treatment plan. Plans for future interventions and recommendations for revision of the treatment plan. Liaison with other physicians/providers. Progress Note: Case and treatment plan discussed in team meeting. Staff reports that the patient refused trazodone because of its taste. We will discontinue it. Described as present and involved. Attending all groups and participates. Visible on the unit. We will look into the possibility of a visiting nurse. Patient seen at 10:19 PM. Feels okay. Has no complaints. Affect is calm and euthymic. Reports mood is really good. States she is getting her routine down again. She is pleased she spoke to her best friend, a male, on the phone; the call made her feel good. Rates sad mood about 3/10 and anxiety about 3/10. Denies feeling hopeless, helpless, worthless or guilty. Denies active and passive suicidal ideation. Denies homicidal ideation. Denies auditory and visual hallucinations. Denies paranoia but she reports that she is cautious because peers here are strangers. Reports she slept well last night. Appetite is good and energy is pretty good. She would like to be able to "work out" here. Tolerating medications well. Wants trazodone discontinued; does not think she needs trazodone. IMPRESSION: Slow progress. Continue present treatment plan. Housing remains insecure at this time. We are trying to arrange a family meeting. Symbicort has been ordered as a substitute for Advair. Bacitracin topically has been ordered for an acne spot that she picked on her face. Anticipate likely discharge before the weekend.
[2017-02-03 16:54] VITALS: BP 114/84
[2017-02-04 08:19] VITALS: BP 122/77
--- NOTE | 2017-02-04 10:56 | CP SOUTH PROGRESS NOTE PSYCH ---
Psych (Inpt) Progress Note Progress Note Include the following elements, when applicable: Involvement in the active treatment of the patient with behavioral observations of the patient and the patient's response to the treatment. Review of the ongoing treatment process in the context of the treatment plan. Indication of how multi-disciplinary staff members are carrying out the treatment plan. Plans for future interventions and recommendations for revision of the treatment plan. Liaison with other physicians/providers. Progress Note: Caes and treatment plan discussed in team meeting. Staff reports that the patient is hyperverbal and a little hypomanic. Mother will not take patient home nor will she participate in a family meeting. Staff reports that the patient has been sullen and devastated by the fact that she cannot return home. Reportedly made multiple calls, about 11, to home. Patient seen at 10:11 a.m. with PA student, Minesh. States she is alright and that she awoke feeling really good. Speech is WNL. Affect appears calm and euthymic, not hypomanic. Reports feeling a lot better. States that she doesn't have so much anxiety or depression. Sad 5/10. Anxiety 5/10. Denies feeling hopeless, helpless or worthless. Regarding guilt, states she has bipolar disorder and is tired of it and doesn't like to have to take medications for it, but states it is not her fault that she has bipolar d/o. Denies active and passive SI, HI, AH, VH and PI. Reports that she slept well last night. Appetite is pretty good this morning. Reports that energy is pretty good, not too high and not too low. Reports tolerating medications well, without complaint. IMPRESSION: Slow progress. Continue present treatment plan. Housing remains problematic and patient is quite somber about mother's refusal to take her back. I advised patient that her mother requested that she stop calling.
[2017-02-04 12:25] VITALS: BP 131/79
--- NOTE | 2017-02-04 13:32 | SOCIAL WORKER PROG NOTE PSYCH ---
Social Work Progress Note Progress Note There was a voicemail this morning from Lilly's Mother asking that Lilly stop calling them. She reiterated again that there is nothing they can do for her and they have to focus on themselves right now. Nursing was informed of the complaint and to watch for the phone usage. I also spoke with Lilly about it. She stated it upset her that people were bringing it up, because she feels so disappointed about her plan not working out. I asked if she was able to call any of her friends last night? She mentioned that her phone locked her out and she wasn't able to access numbers. She asked if she could try again, with a possible fingerprint. I told her we would look at her phone together and see. When we got the phone her phone read that it was "disabled." She looked very confused during this process. The assistant unit forester asked if we could look up names on the computer if the number would be listed there? She was hesitant and then gave a couple of names, but oddly couldn't remember where they lived. While doing this she suddenly remembered one of the cell phone numbers of a friend and insisted on making the call. She kept asking why we would need to talk to anyone if she is ready to go. I told her that we wanted to ensure that she had a safe plan and that she had been interested in VNS services and we would need an address for that service to be in place. I also pointed out that if we let her go without her talking to anyone, how we she know she could stay there? During this conversation I also asked if I could have her sign a release to get records from [facility]. It took her several minutes to process this information correctly even though I explained the purpose of it several times. She eventually signed it. She got on the phone to make a call when group was done. Around 1pm she approached me to tell me that she got a hold of her friend and that he is coming right now to the hospital. I asked for what? She said a meeting. I told her that these things really need to be coordinated as I have another meeting to attend soon and that I need to set up the meetings. She said but he's on his way. I told her that she is not leaving today. She needed to be redirected about this a few times by nursing and myself. Awhile later she apologized for her behavior and said she just acted without really thinking and she didn't mean to akbar this marketing writer. She said her friend was going to come back around 4pm and we could set up a time then. I saw Lilly sitting with a male around 5pm. They were holding hands and quite close in the kitchen. I introduced myself and asked if he was available to come in tomorrow? He said he was available for 11:30am.
[2017-02-04 15:53] VITALS: BP 130/71
[2017-02-04 19:39] VITALS: BP 129/85
[2017-02-05 08:04] VITALS: BP 137/72
--- NOTE | 2017-02-05 12:34 | CP SOUTH PROGRESS NOTE PSYCH ---
Psych (Inpt) Progress Note Progress Note Include the following elements, when applicable: Involvement in the active treatment of the patient with behavioral observations of the patient and the patient's response to the treatment. Review of the ongoing treatment process in the context of the treatment plan. Indication of how multi-disciplinary staff members are carrying out the treatment plan. Plans for future interventions and recommendations for revision of the treatment plan. Liaison with other physicians/providers. Progress Note: Case and treatment plan discussed in team meeting. Staff reports that the patient thought she was having a "family meeting" at 4 pm yesterday. She impulsively planned to leave yesterday with a friend, Toby. A meeting with Toby was scheduled for 11:30 a.m. today to assess her discharge plan of living with him. Patient seen at 10:10 AM. Reports doing all right. States she wants to live with her friend Toby. She has known him for 2 years. They used to date. Patient thinks he lives in [place]. Patient is somewhat vague. Reports mood is so-so today, not a bad mood but not a good mood. Reports being a little confused about her decision to leave. She seems fragile and ambivalent. Affect is calm and blunted. Seems disappointed because her mother does not want to talk to her by phone. Rates sad mood about 5/10 and anxiety about 7/10. Denies feeling hopeless or helpless but she is not feeling like herself because of her ambivalence. Denies feeling worthless or guilty. Denies active and passive suicidal ideation. Denies homicidal ideation. Denies auditory and visual hallucinations. Denies paranoid ideation and magical duffy. Patient is oriented to person and place. She thinks the day of the week is Thursday but it is . She knows the month and year but does not know the date. Describes sleep as she was a little restless last night. Appetite is okay. Rates energy like 5/10 with 10 being best. Tolerating medications but wants an increase in Latuda dose. Feels ready and safe for discharge. IMPRESSION: Slow progress. Continue present treatment plan. Patient appears fragile and is ambivalent about her plan to stay with her friend Toby. We will try to assess the situation if and when he comes in for a meeting. We will now change Latuda dose from 40 mg q.h.s. to 60 mg daily at dinnertime.
[2017-02-05 12:41] VITALS: BP 124/81
--- NOTE | 2017-02-05 15:46 | SOCIAL WORKER PROG NOTE PSYCH ---
Social Work Progress Note Progress Note Lilly looked very confused just before the meeting scheduled with her friend Toby. We talked and she indicated that she wasn't sure if she was making a good decision. I tried to explore this more with her. She just said that she wished she would've talked to her best friend "ryan" before because he always knows what to tell her to do. She didn't indicate that she thought he (Toby) would hurt her or anything, she just felt confused and wanted to ensure that she wasn't jumping into something. I asked her if he was more than a friend? She said no. I asked if she thought that if she stayed with him he would think that it was more than that? She said she told him that she wasn't rushing into anything and she needs to focus on herself. When Toby came in I asked him how long it has been since he has seen Lilly? Other than this hospital stay. He said it has been a couple of months. I asked how he thought she was doing? He said that she needs stability and to occupy herself wisely. He said she has been on an "emotional rollercoaster." He brought up Lilly's daughter. I asked Lilly to talk a little bit more about her daughter because she hasn't really come up much in conversation. She stated that she hasn't really been seeing her 16 year old daughter Erci, because she hasn't been on her meds and hasn't been stable. She said she tends to alienate herself away from people. She wants to be in her life though. She started getting tearful and started talking about how she gets flooded with thoughts and emotions about her childhood. She doesn't like to talk about that stuff, but she stated it impacts her ability to trust people now. Encouraged her to talk about that in therapy down the road when she is more stable. Talked about how she really needs to focus on staying on her medications. Discussed setting up VNS services for med administration and setting up IOP. Toby lives with his Mom in [place]. At one point Toby asked to go to the bathroom and as I showed him where to go, he shared that he thought she needed more time. Lilly feels she will be ready tomorrow. I pointed out to her that in my opinion I felt she could use a little more time and that I would discuss it further with the tx team. I told her that her thoughts still seem a little confused at times and unsure of things. Talked about going to [facility] as an aftercare plan.
[2017-02-05 16:02] VITALS: BP 123/75
[2017-02-05 19:53] VITALS: BP 132/81
[2017-02-06 07:49] VITALS: BP 121/82
[2017-02-06 12:17] VITALS: BP 108/67
--- NOTE | 2017-02-06 14:38 | CP SOUTH PROGRESS NOTE PSYCH ---
Psych (Inpt) Progress Note Progress Note Include the following elements, when applicable: Involvement in the active treatment of the patient with behavioral observations of the patient and the patient's response to the treatment. Review of the ongoing treatment process in the context of the treatment plan. Indication of how multi-disciplinary staff members are carrying out the treatment plan. Plans for future interventions and recommendations for revision of the treatment plan. Liaison with other physicians/providers. Progress Note: Case and treatment plan discussed in team meeting. Staff reports that the patient had a good day. Meeting with her friend Toby went well yesterday. Patient has been appearing fragile. Patient seen at 10:40 AM with Minesh Temple. Patient reports feeling good. Woke up this morning and had a bit of depression. Reports she is getting her memory back. Affect is calm and euthymic. Reports journaling feels good. Complains of nasal congestion. We will now discontinue Atarax and start Claritin 10 mg daily. We will increase gabapentin to 600 mg t.i.d. Patient is asking if she has ADHD because she does things differently from others. Mood is good. Reports sad mood and anxiety are both 0/10 right now. Denies feeling hopeless, helpless, worthless or guilty. Denies active and passive suicidal ideation. Denies homicidal ideation. Denies auditory and visual hallucinations and paranoid ideation. Reports that she slept well. Appetite is good. Energy is pretty good but she would like to be able to work out. Patient indicates she dropped out of high school in the 10th grade because of depression and she could not get out of bed. Tolerating increase in Latuda dose but her head feels heavy although she does not feel groggy. REGINALDO ta did a Folstein Mini-Mental state examination and the patient scored 24/30. IMPRESSION: Slow progress. Continue present treatment plan. I suspect (but do not have data to support) that the patient may have a normal verbal IQ but perhaps a diminished performance IQ. Anticipate likely discharge on Thursday.
[2017-02-06 15:32] VITALS: BP 130/80
--- NOTE | 2017-02-06 16:25 | SOCIAL WORKER PROG NOTE PSYCH ---
Social Work Progress Note Progress Note Lilly reports feeling well and that she is feeling excited about leaving the hospital soon. She said her mood is postive. She feels that she is learning more about her bipolar disorder. I gave her a print out about [facility] behavioral health services and explained that walk-in evaluations are done M,T,W and to be there at 8am. I also told her that it would be important to find out if Toby's Mother is okay with her staying at the home, since they live together. She said she didn't know and would talk to Toby. Discussed VNS services. Her Brother Prashant apparently worked for a VNS service and so she wanted to call him to discuss. We called Prashant together and were able to speak to him about Lilly's discharge plan. He was happy to hear the visiting nurse would be set up for her. He also stressed the importance of her follow through with the plan to go to [facility]. Talked about discharge for Thursday afternoon.
[2017-02-06 19:53] VITALS: BP 133/78
[2017-02-07 07:53] VITALS: BP 123/52
--- NOTE | 2017-02-07 09:57 | CP SOUTH PROGRESS NOTE PSYCH ---
Psych (Inpt) Progress Note Progress Note Include the following elements, when applicable: Involvement in the active treatment of the patient with behavioral observations of the patient and the patient's response to the treatment. Review of the ongoing treatment process in the context of the treatment plan. Indication of how multi-disciplinary staff members are carrying out the treatment plan. Plans for future interventions and recommendations for revision of the treatment plan. Liaison with other physicians/providers. Progress Note: Pt did not sleep well yesterday and felt "not relaxed" and very anxious since d/ c of atarax. Would like it restarted. Feels that claritin not making a difference and prefers the atarax instead. She spoke at length about family meeting which she feels went "really well." In addition, she spoke about discharge which she would like to occur on Thursday. She plans on staying with a friend but, "still needs to work out some details." She denies SI or HI. Current Medications Sig/Adeline Start time Last Medication Dose Route Stop Time Status Admin Acetaminophen 650 MG Q8P PRN 01/31 1830 AC 02/01 PO 0812 Albuterol Sulfate 2 PUF Q4P PRN 02/01 2345 AC 02/02 INH 2044 Bacitracin 1 TRACE BID 02/03 1011 AC 02/07 TOP 0934 Budesonide/ 2 PUF BID 02/03 1025 AC 02/07 Formoterol Fumarate INH 0841 Gabapentin 600 MG TID 02/06 1600 AC 02/07 PO 0821 Gabapentin 300 MG TID 02/02 1600 DC 02/06 PO 0753 Hydroxyzine HCl 50 MG Q8P PRN 01/31 1145 DC 02/06 PO 0758 Lamotrigine 25 MG BID 01/29 2236 AC 02/07 PO 0821 Loratadine 10 MG DAILY 02/07 1000 AC 02/07 PO 0820 Lurasidone HCl 60 MG DAILY@1800 02/05 1800 AC 02/06 PO 1850 Multivitamins 1 TAB DAILY 01/31 1000 AC 02/07 Therapeutic PO 0929 Nicotine 14 MG DAILY 01/31 1152 AC 02/07 TOP 0822 Nicotine 4 MG Q2H PRN 01/30 2200 AC 02/06 PO 1551 Ondansetron HCl 4 MG Q8P PRN 01/31 1200 AC 02/01 PO 1639 Prazosin HCl 2 MG QPM 01/30 2200 AC 02/06 PO 2105 Vital Signs Date Time Temp Pulse Resp B/P B/P Pulse O2 O2 Flow FiO2 Mean Ox Delivery Rate 02/07 075 97.7 99 123/52 02/06 210 98.3 98 18 133/78 02/06 1953 98.3 98 133/78 02/06 1532 98 130/80 02/06 1217 97 108/67 MSE General appearance: good hygiene and grooming; Attitude: cooperative; Eye contact: appropriate; Movement: no psychomotor agitation or slowing; Speech: nl fluency, nl rate/rhythm, nl volume, nl prosody; Mood: "crappy" Affect: irritable, very flat, appropriate, constricted, non-labile, congruent; Thought process: linear and goal-directed; Thought content: denied SI or HI, no paranoid ideation; Perception: denied hallucinations- auditory, visual, does not appear to be responding to internal stimuli; I/J: limited A/P: Pt with MDD with marked irritability. - Restart atarax as discontinued for nasal congestion. Seems to be mroe helpful for patient with sleep. -Continue current medication regimen -Encourage integration into the milieu
[2017-02-07 11:56] VITALS: BP 137/78
[2017-02-07 15:41] VITALS: BP 143/86
[2017-02-07 20:07] VITALS: BP 112/73
[2017-02-08 07:55] VITALS: BP 123/73
--- NOTE | 2017-02-08 10:51 | CP SOUTH PROGRESS NOTE PSYCH ---
Psych (Inpt) Progress Note Progress Note Include the following elements, when applicable: Involvement in the active treatment of the patient with behavioral observations of the patient and the patient's response to the treatment. Review of the ongoing treatment process in the context of the treatment plan. Indication of how multi-disciplinary staff members are carrying out the treatment plan. Plans for future interventions and recommendations for revision of the treatment plan. Liaison with other physicians/providers. Progress Note: Pt reports that she was not able to sleep again last night. She feels that her thoughts are racing and it is interfering with her being able to concentrate and sleep. Denies SI or HI. Current Medications Sig/Adeline Start time Last Medication Dose Route Stop Time Status Admin Acetaminophen 650 MG Q8P PRN 01/31 1830 AC 02/08 PO 0801 Albuterol Sulfate 2 PUF Q4P PRN 02/01 2345 AC 02/02 INH 2044 Bacitracin 1 TRACE BID 02/03 1011 AC 02/07 TOP 0934 Budesonide/ 2 PUF BID 02/03 1025 AC 02/08 Formoterol Fumarate INH 0800 Gabapentin 800 MG TID 02/08 1600 UNVr PO Gabapentin 600 MG TID 02/06 1600 DC 02/08 PO 0800 Hydroxyzine HCl 50 MG Q6P PRN 02/07 1000 AC 02/08 PO 0802 Lamotrigine 25 MG BID 01/29 2236 AC 02/08 PO 0800 Loratadine 10 MG DAILY 02/07 1000 AC 12 PO 0800 Lurasidone HCl 60 MG DAILY@1800 12 1800 AC 02/07 PO 1811 Multivitamins 1 TAB DAILY 01/31 1000 AC 02/08 Therapeutic PO 0800 Nicotine 14 MG DAILY 01/31 1152 AC 02/07 TOP 0822 Nicotine 4 MG Q2H PRN 01/30 2200 AC 02/07 PO 1813 Ondansetron HCl 4 MG Q8P PRN 01/31 1200 AC 02/01 PO 1639 Prazosin HCl 2 MG QPM 01/30 2200 AC 02/07 PO 2257 Vital Signs Date Time Temp Pulse Resp B/P B/P Pulse O2 O2 Flow FiO2 Mean Ox Delivery Rate 02/08 0755 97.2 98 123/73 02/07 2257 97.7 84 18 112/73 02/07 2007 97.7 84 112/73 02/07 1541 100 143/86 02/07 1156 104 137/78 MSE General appearance: good hygiene and grooming; Attitude: cooperative; Eye contact: appropriate; Movement: no psychomotor agitation or slowing; Speech: nl fluency, nl rate/rhythm, nl volume, nl prosody; Mood: "so bad" Affect: irritable, very flat, appropriate, constricted, non-labile, congruent; Thought process: linear and goal-directed; Thought content: denied SI or HI, no paranoid ideation; Perception: denied hallucinations- auditory, visual, does not appear to be responding to internal stimuli; I/J: limited A/P: Pt with MDD with marked irritability. -Increased gabapentin slightly in 800mg BID -Continue current medication regimen -Encourage integration into the milieu
[2017-02-08 12:42] VITALS: BP 135/86
[2017-02-08 16:08] VITALS: BP 121/79
[2017-02-08 19:35] VITALS: BP 130/76
[2017-02-09 08:11] VITALS: BP 132/79
--- NOTE | 2017-02-09 10:55 | SOCIAL WORKER PROG NOTE PSYCH ---
Social Work Progress Note Progress Note Called [facility] to set up VNS services in [place]. Gave demographics and insurance info. They would like meds called into [facility]. Met with Lilly, who presented as much more pressured and loud than I had seen in recent days. She was talking about how her symptoms have increased, specifically anxiety and OCD behaviors. She hasn't talked much previously about OCD like symptoms, but today she was informing me that she has been washing her hair 4 times and washing her body 8/9 times in the shower. She mentioned counting everything. She stated she used to be able to get ready and now it takes her a really long time. She feels her meds need to be adjusted. She is having difficulty sleeping with racing thoughts. She feels particularly upset that she didn't speak with her friend Toby yesterday and she doesn't know what is going on. She is unsure now of the plan for her to stay with him, because she hasn't heard from him. The anxiety from not knowing is causing her to become increasingly symptomatic. I asked for his number to reach out to him. Toby Bryan- [phone]. Lilly doesn't feel she is ready to discharge today. I would agree, based on her presentation today. Called Toby Bryan and left a message. As of 4pm I have not heard anything from him.
[2017-02-09 12:00] VITALS: BP 134/83
--- NOTE | 2017-02-09 14:41 | CP SOUTH PROGRESS NOTE PSYCH ---
Psych (Inpt) Progress Note Progress Note Include the following elements, when applicable: Involvement in the active treatment of the patient with behavioral observations of the patient and the patient's response to the treatment. Review of the ongoing treatment process in the context of the treatment plan. Indication of how multi-disciplinary staff members are carrying out the treatment plan. Plans for future interventions and recommendations for revision of the treatment plan. Liaison with other physicians/providers. Progress Note: Dr. Lan's notes reviewed. Case and treatment plan discussed in team meeting. Staff reports that the patient's friend, Toby, hasn't been calling back. Patient does not yet have housing secured. Patient was unable to tolerate doing a Resource Guide questionnaire. Patient seen at 10:48 AM. Affect is anxious. Patient is dressed in blue paper scrubs because she is waiting to take a shower. Feels "all over the place," referring to her "anxiety, thinking and just making decisions." Reports OCD is making her's "sleep go bonkers." Reports that she is doing a lot of counting and washing and checking. Complains of decreased short-term memory. States she needs to "slow down." I advised her that I am reluctant to add an SSRI for OCD, as it would likely make her racing thoughts worse. Reports she has not heard from Toby since his visit on Thursday. Patient's thinking is mildly disorganized. Rates sad mood about 8/10 and anxiety 10/10. Denies feeling hopeless or helpless. Feels a little worthless. Denies feeling guilty. Denies suicidal and homicidal ideation. Denies auditory and visual hallucinations and paranoid ideation. Reports she had difficulty falling asleep last night. Appetite is not bad, stating that she ate everything for breakfast. States she has a lot of energy. Does not want to be on Depakote or lithium. Reports that she had a tongue and throat allergic reaction to lithium. Agrees to increase Latuda dose to 80 mg daily. Does not feel ready for discharge because she feels her medications need to be adjusted but she does feel safe for discharge. IMPRESSION: Slow progress. Continue present treatment plan. Housing remains problematic. Monitor response to increase in Latuda dose to 80 mg daily at dinnertime.
[2017-02-09 16:35] VITALS: BP 123/74
[2017-02-09 20:05] VITALS: BP 120/73
[2017-02-10 08:48] VITALS: BP 113/72
--- NOTE | 2017-02-10 11:20 | SOCIAL WORKER PROG NOTE PSYCH ---
Social Work Progress Note Progress Note NOLAN HERNANDEZ [id number] 1975 NOLAN HERNANDEZ [id number] Pended Authorization # Client Authorization # Type of Request [id number] CONCURRENT Date of Admission/ Start of Services Requested From Submission Date 01/30/2017 02/10/2017 02/10/2017
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
[2017-02-10 12:33] VITALS: BP 128/69
--- NOTE | 2017-02-10 14:03 | PN- Att Addend ---
Attending Addendum Attending Brief Note S: Called to evaluate patient with left ear discomfort x 3 days. No fever or nasal congestion. Has had mild cough (not smoking). O: VS: Vital Signs Date Time Temp Pulse Resp B/P B/P Pulse O2 O2 Flow FiO2 Mean Ox Delivery Rate 02/10 1233 92 128/69 02/10 0848 98.3 95 113/72 02/09 2151 96 18 120/73 02/09 2005 97.4 96 120/73 02/09 1635 98 123/74 Current Medications Sig/Adeline Start time Last Medication Dose Route Stop Time Status Admin Acetaminophen 650 MG .STK-MED ONE 02/09 1630 DC PO 02/09 1631 Acetaminophen 650 MG Q8P PRN 01/31 1830 AC 02/10 PO 0854 Albuterol Sulfate 2 PUF Q4P PRN 02/01 2345 AC 02/02 INH 2044 Bacitracin 1 TRACE BID 02/03 1011 AC 02/10 TOP 0847 Budesonide/ 2 PUF BID 02/03 1025 AC 02/10 Formoterol Fumarate INH 0848 Fluticasone 1 SPRAY BID 02/08 1340 AC 02/10 Propionate SABRINA 0847 Gabapentin 800 MG TID 02/08 1600 AC 02/10 PO 0848 Hydroxyzine HCl 50 MG ONCE ONE 02/09 2337 DC PO 02/09 2338 Hydroxyzine HCl 50 MG Q6P PRN 02/07 1000 AC 02/10 PO 0942 Lamotrigine 25 MG BID 01/29 2236 AC 02/10 PO 0848 Lurasidone HCl 80 MG DAILY@0800 02/11 0800 AC PO Lurasidone HCl 80 MG DAILY@1800 02/09 1800 DC 02/09 PO 1628 Multivitamins 1 TAB DAILY 01/31 1000 AC 02/10 Therapeutic PO 0848 Neomycin/Polymyxin/ 4 GTT TID 02/10 1600 UNir Bacitr/Hydrocort OTIC 02/16 2200 Nicotine 14 MG DAILY 01/31 1152 AC 02/10 TOP 0848 Nicotine 4 MG Q2H PRN 01/30 2200 AC 02/10 PO 0942 Ondansetron HCl 4 MG Q8P PRN 01/31 1200 AC 02/01 PO 1639 Prazosin HCl 2 MG QPM 01/30 2200 AC 02/09 PO 2151 Physical Exam: HEENT: ears- left canal with erythema, tenderness, no exudate; TM is dull w/o erythema right- WNL jeffrey - no erythema Neck: + mild left posterior auricular adenopathy Impression/Plan: #Otitis Externa and Serous Otitis Left Ear- some fluid behind TM due to adenopathy. Plan: Will give trial of Cortisporin Otic Suspension 4 gtt tid to left ear x 7 days. If not improving in 1-2 days will consider po Abx (Augmentin). #Tinea- on Griseofulvin. Needs renewal. Plan: Renew Griseofulvin.
--- NOTE | 2017-02-10 14:50 | CP SOUTH PROGRESS NOTE PSYCH ---
Psych (Inpt) Progress Note Progress Note Include the following elements, when applicable: Involvement in the active treatment of the patient with behavioral observations of the patient and the patient's response to the treatment. Review of the ongoing treatment process in the context of the treatment plan. Indication of how multi-disciplinary staff members are carrying out the treatment plan. Plans for future interventions and recommendations for revision of the treatment plan. Liaison with other physicians/providers. Progress Note: Case and treatment plan discussed in team meeting. Staff reports that the patient complained of fluid in her ear. We will ask hospitalist to see the patient for this. Staff reports patient had a zbigniew day yesterday. Complained of OCD symptoms. Appearing more pressured and anxious. Patient seen at 1:22 PM with medical student, Elliott. Patient has the sniffles. She complains of left earache. Reports she had a really rough morning. Reports that last night and this morning she let her emotions out about her childhood. She consequently felt anxious and depressed. Reports groups today helped her with her emotions. Tolerating Latuda at 80 mg but had extreme energy last night and had difficulty falling asleep despite an additional Atarax 50 mg. Patient has agreed to change Latuda dosing time to q.a.m. to see if this helps reduce evening activation. Reports her friend Toby left a message for her yesterday. Patient plans to start today over as a good day. She plans to take a behavioral approach to her OCD. Rates sad mood 0/10 and anxiety about 7/10. Denies feeling hopeless, helpless, worthless or guilty. Denies suicidal and homicidal ideation. Denies auditory and visual hallucinations and paranoid ideation. Reports appetite is good. Reports energy is pretty good too. Patient approached me this afternoon and asked if I thought she has multiple personality disorder versus bipolar disorder. I informed her I thought it more likely that she has bipolar disorder. IMPRESSION: Slow progress. Continue present treatment plan. Monitor response to change in Latuda to 80 mg q.a.m. Housing remains problematic. We are referring [facility].
[2017-02-10 16:10] VITALS: BP 129/66
[2017-02-10 19:50] VITALS: BP 140/78
[2017-02-11 08:01] VITALS: BP 132/85
--- NOTE | 2017-02-11 10:57 | CP SOUTH PROGRESS NOTE PSYCH ---
Psych (Inpt) Progress Note Progress Note Include the following elements, when applicable: Involvement in the active treatment of the patient with behavioral observations of the patient and the patient's response to the treatment. Review of the ongoing treatment process in the context of the treatment plan. Indication of how multi-disciplinary staff members are carrying out the treatment plan. Plans for future interventions and recommendations for revision of the treatment plan. Liaison with other physicians/providers. Progress Note: Case and treatment plan discussed in team meeting. Staff reports that the patient's OCD is worse. Anxious. Somatic. Not processing information well. Patient seen at 10:35 a.m. States she is doing well but also reports her sleep was so-so last night due to MNA. Consequently, I have changed Atarax to 50 mg q6h prn anxiety/allergies and ordered Atarax 100 mg qhs standing. Patient thinks she will live with Toby but he hasn't been calling back. Her plan A ( living with parents) and plan B (living with Toby) seem to have fallen through. I encouraged patient to work on a plan C. Rates sad mood like a 5/10. Rates anxiety 9/10 because of pressure for discharge. Denies feeling hopeless or guilty. Does feel helpless and worthless. Denies SI, HI, AH, VH and PI. Reports appetite is good and energy is pretty good. States that during their visit, she made Toby feel that she didn't trust him. IMPRESSION: Slow progress. Continue present treatment plan. I will order mouth checks for medication administration. Housing remains problematic.
--- NOTE | 2017-02-11 11:14 | SOCIAL WORKER PROG NOTE PSYCH ---
Social Work Progress Note Progress Note Lilly and I had a discussion about her friend Toby not getting back to her and needing to move forward with another discharge plan. She is having a hard time accepting that Toby hasn't called and she remains hopeful that he will come through to her. She is blaming herself about this, stating she must have said or done something to him and she needs to apologize to him. I told her that she didn't need to come down on herself and that he isn't returning my call either. She started talking about needing to stick to one decision and that she had picked Toby and he was willing to have her. I told her she can continue to work on that option, but we need to have other choices/options we are working on simultaneously. I asked about other friends/ family? She was agreeable to giving me some names and numbers. Aunt Cammie (not a biological Aunt) [phone] is her preference in me contacting next. Called and left a voicemail.
--- NOTE | 2017-02-11 11:25 | SOCIAL WORKER PROG NOTE PSYCH ---
Social Work Progress Note Progress Note [facility] - Phoned and spoke with Valentine - she stated someone will call back this afternoon to complete a screening for respite stay.
[2017-02-11 12:20] VITALS: BP 126/77
[2017-02-11 16:05] VITALS: BP 135/87
[2017-02-11 19:36] VITALS: BP 129/65
[2017-02-12 07:52] VITALS: BP 120/68
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
[2017-02-12 12:20] VITALS: BP 130/85
--- NOTE | 2017-02-12 15:15 | SOCIAL WORKER PROG NOTE PSYCH ---
Social Work Progress Note Progress Note Pt reports she can go to her Aunts house [facility], and that even if she doesn't talk with her prior to discharge she could go there. I encouraged pt to call [phone] and begin a plan B i.e. [facility] intake, I gently made her aware that a lot of her family have decided not to be part of her discharge plan, she doesnt quite grasp this concept. She reports poor sleep last night, and still doesnt feel medications are at maximum beneift to her.
--- NOTE | 2017-02-12 16:07 | CP SOUTH PROGRESS NOTE PSYCH ---
Psych (Inpt) Progress Note Progress Note Include the following elements, when applicable: Involvement in the active treatment of the patient with behavioral observations of the patient and the patient's response to the treatment. Review of the ongoing treatment process in the context of the treatment plan. Indication of how multi-disciplinary staff members are carrying out the treatment plan. Plans for future interventions and recommendations for revision of the treatment plan. Liaison with other physicians/providers. Progress Note: Case and treatment plan discussed in team meeting. Staff reports that the patient had a pulse greater than 110 last night but it was 98 this morning. Blood pressure today was 124/68. Staff describes patient as "stuck." Patient seen at 12:14 PM. Reports not feeling well, a little dizzy, "cold and pale." States she did not sleep well again last night. She believes she did not receive Atarax 100 mg at bedtime although documentation supports that she had. Reports her heart was beating fast last night. Mood is okay, not bad but rates sad mood 10/10, trying to contact family members for housing. Rates anxiety about 8/10. Feels hopeless, helpless and worthless but denies feeling guilty. Denies suicidal and homicidal ideation. Denies auditory and visual hallucinations and paranoid ideation. Describes appetite as hungry now but she did not feel hungry on awakening. Energy is described as really low right now. Tolerating medications except reports mild bilateral hand tremor. States she has not heard back from her friend Toby. IMPRESSION: Slow progress. Continue present treatment plan. Placement remains problematic.
[2017-02-12 16:13] VITALS: BP 137/88
[2017-02-12 20:02] VITALS: BP 124/75
[2017-02-13 07:40] VITALS: BP 106/70
--- NOTE | 2017-02-13 10:15 | SOCIAL WORKER PROG NOTE PSYCH ---
Social Work Progress Note Progress Note Completed [facility] online review, provided updated clinical, Requested continued stay. SW check [facility] for next review date please.
[2017-02-13 12:20] VITALS: BP 125/76
--- NOTE | 2017-02-13 12:46 | SOCIAL WORKER PROG NOTE PSYCH ---
Social Work Progress Note Progress Note Dr. Cullen, Lilly, and I met together today. Lilly remains hopeful of the possibility to stay at her Aunt Cammie's house. Although, she has not spoken with her directly. This appeals writer has not heard back from the messages I left. She continued to say that her medication is not right and that she is still not in a stable place. Lilly has been saying that she won't stay at a [facility] due to her emotional instability. She is insisting that she has worked hard at contacting friends and family and hasn't given up on that plan. Dr. Cullen informed her that she is discharging on Thursday. She said she can't discharge Thursday and that she is not ready. I reiterated that she doesn't meet criteria at this point to be inpatient and that she needs to go to [facility]. Dr. Cullen repeatedly stated she is leaving Thursday. As we were leaving the room, she continued to tell me she was not leaving Thursday and that the doctor can't kick her out.
--- NOTE | 2017-02-13 15:13 | CP SOUTH PROGRESS NOTE PSYCH ---
Psych (Inpt) Progress Note Progress Note Include the following elements, when applicable: Involvement in the active treatment of the patient with behavioral observations of the patient and the patient's response to the treatment. Review of the ongoing treatment process in the context of the treatment plan. Indication of how multi-disciplinary staff members are carrying out the treatment plan. Plans for future interventions and recommendations for revision of the treatment plan. Liaison with other physicians/providers. Progress Note: Case and treatment plan discussed in team meeting. Staff describes patient as present and involved. Patient seen with medical student 11:18 AM. Patient had been resting in bed but got up and met with us in the office. States she did not sleep well last night. States she is depressed. Don[place]son depressed and anxious yesterday and reports last night her thoughts were racing and she was really, really sad. At this point, we have agreed to stop Atarax at bedtime and start trazodone 50 mg q.h.s. p.r.n. insomnia, june repeat 1. Reports she did well on trazodone in the past. Affect is calm and blunted. Rates sad mood and anxiety both 10/10. Feels hopeless and helpless. Denies feeling worthless or guilty. Reports she had mild suicidal thoughts yesterday but denies suicidal thoughts today. She gives a safety promise for here. Denies homicidal ideation. Denies auditory and visual hallucinations. When asked if anyone is out to harm her, she responded she did not know. Reports appetite was poor earlier this morning on awakening but she feels hungry now. Reports energy is not so good. I advised the patient to avoid daytime napping. Reports tolerating medications well. I met with patient with Hui Leos LCSW around 11:40 a.m. and I informed the patient that discharge is planned for Thursday. IMPRESSION: Slow progress. Continue present treatment plan. We will now change from p.r.n. Atarax for sleep to p.r.n. trazodone. We will now increase Lamictal to 50 mg b.i.d. per patient's request. We will check an EKG. Patient has a small rash on her lower neck. This does not appear to be Enriquez-Tl syndrome. I ordered hydrocortisone cream 1% topically b.i.d. Discharge is planned for 02/16/17.
[2017-02-13 19:38] VITALS: BP 124/79
[2017-02-14 08:43] VITALS: BP 114/92
--- NOTE | 2017-02-14 10:36 | CP SOUTH PROGRESS NOTE PSYCH ---
Psych (Inpt) Progress Note Progress Note Include the following elements, when applicable: Involvement in the active treatment of the patient with behavioral observations of the patient and the patient's response to the treatment. Review of the ongoing treatment process in the context of the treatment plan. Indication of how multi-disciplinary staff members are carrying out the treatment plan. Plans for future interventions and recommendations for revision of the treatment plan. Liaison with other physicians/providers. Progress Note: Pleasant but anxious, stated that she does not feel comfortable here or many other places due to her anxiety. Stated that she did not sleep at night (nursing report confirms this) said that trazodone 150mg, and clonazepam in the past helped her; asked why she cant be on a low dose of clonazepam, I explained to her that it would be easier to max her out on one med rather than small doses of several meds, and will increase her trazodone tonight to address insomnia. 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 MSE: pleasant, fair grooming. No tics or tremors evident. Her speech is rapid and regular volume. Her affect is full and reactive. Her mood is good. Thinking is tangential but not grossly disorganized, perseverative. Mild paranoia/ hypervigilance per her report. States that she has ocd rituals including counting, washing, but she is using her coping skills (self talk primarily) to avoid doing them. No evidence to harm herself or anyone else. Her insight is fair and judgment fair. Plan: address insomnia with increasing trazodone dose; re-eval how she slept tmr.
[2017-02-14 12:04] VITALS: BP 141/89
[2017-02-14 16:21] VITALS: BP 147/84
[2017-02-14 19:34] VITALS: BP 113/75
[2017-02-15 08:06] VITALS: BP 113/76
[2017-02-15 12:23] VITALS: BP 122/76
--- NOTE | 2017-02-15 12:32 | CP SOUTH PROGRESS NOTE PSYCH ---
Psych (Inpt) Progress Note Progress Note Include the following elements, when applicable: Involvement in the active treatment of the patient with behavioral observations of the patient and the patient's response to the treatment. Review of the ongoing treatment process in the context of the treatment plan. Indication of how multi-disciplinary staff members are carrying out the treatment plan. Plans for future interventions and recommendations for revision of the treatment plan. Liaison with other physicians/providers. Progress Note: Stated that she did not sleep at night time (nursing reports she slept), wants her trazodone to be given together at 150mg, agreeable to this. Encouraged her to get out of her room and in the milieu, as not to further alter her sleep schedule, to avoid day time napping so she is sleepy at night. Otherwise she is doing well, mood is neutral, has been eating. MSE: pleasant, fair grooming. No movement disorder. Her speech is regular rate and volume. Her mood is neutral and her affect is constricted (due to sleepiness per her say she is exhausted). She does not appear to be tangential or disorganized, focused on her sleep only. She stated that she had some suicidal thoughts last night but none recently, no plan or intent. Eye contact is fair, she is well related. Her insight is fair and judgment fair. Plan: trazodone 150mg at night time for insomnia, no PRN; if she is too sedated in day time can switch back.
[2017-02-15 15:58] VITALS: BP 123/73
[2017-02-15 19:39] VITALS: BP 119/77
[2017-02-16 08:14] VITALS: BP 111/71
[2017-02-16 12:26] VITALS: BP 126/75
--- NOTE | 2017-02-16 14:50 | SOCIAL WORKER PROG NOTE PSYCH ---
Social Work Progress Note Progress Note Lilly was seen by Dr. Cullen and I. Lilly was sitting on her bed rubbing lotion on her feet. She was pressured in telling us how we can't discharge today. She talked about connecting with a friend who she is thinking is going to help her get a place to stay. She kept insisting that she can't leave due to still having emotional problems and not sleeping well. I kept repeating that we are aware that she is still having some issues, but she is not meeting inpatient criteria anymore and should follow through with IOP. Had Lilly sign a release for her friend Mariah. I called this friend and explained Lilly's situation and not having a place to go. He said he was trying to help her, but was waiting to get calls back and couldn't do anything to help right now. I also spoke with Lilly's Brother Prashant and explained the situation. He said she has done this over and over and has stayed so many places, that no one is open to having her there. He does not have a place for her to go.
--- NOTE | 2017-02-16 15:03 | CP SOUTH PROGRESS NOTE PSYCH ---
Psych (Inpt) Progress Note Progress Note Include the following elements, when applicable: Involvement in the active treatment of the patient with behavioral observations of the patient and the patient's response to the treatment. Review of the ongoing treatment process in the context of the treatment plan. Indication of how multi-disciplinary staff members are carrying out the treatment plan. Plans for future interventions and recommendations for revision of the treatment plan. Liaison with other physicians/providers. Progress Note: Dr. Werner's notes reviewed. Case and treatment plan discussed in team meeting. Staff reports that the patient had a good weekend. Visible. Refusing some groups. Denying suicidal ideation. Patient seen at 2:13 PM. Reports she just showered. States she is okay. Reports she felt kind of suicidal on Thursday but not now. Reports she is still not sleeping; reports sleeping maybe 2 hours. Complains of sinus symptoms. She was on Singulair in the past and I just ordered it for her. I also ordered saline nasal spray. She has an order for guaifenesin p.r.n., as she reports a cough. Rates sad mood 4/10 and anxiety about 6/10. Denies feeling hopeless. Feels a little bit helpless. Denies feeling worthless or guilty. Denies suicidal and homicidal ideation. Denies auditory and visual hallucinations. Reports paranoid ideation but she is vague. Reports appetite is good when she eats but she skipped breakfast on Thursday and Thursday. Ate breakfast this morning but had some nausea. Describes energy as like really, really fast. Patient remains homeless and she states she is not ready leave but I believe she has reached maximum hospital benefit. She is requesting further medication adjustments, but I do not believe she needs any specific adjustment in medication in the hospital at this time (other than for relief of up her respiratory infection symptoms). IMPRESSION: Condition improved. Placement remains highly problematic.
[2017-02-16 16:46] VITALS: BP 120/75
[2017-02-16 19:59] VITALS: BP 137/78
[2017-02-17 08:05] VITALS: BP 131/82
--- NOTE | 2017-02-17 10:05 | SOCIAL WORKER PROG NOTE PSYCH ---
Social Work Progress Note Progress Note Yojana will be in afternoon, however [facility] told me there arent any beds today, and that the pt can call from the community to keep herself active on their waitlist.
--- NOTE | 2017-02-17 11:16 | SOCIAL WORKER PROG NOTE PSYCH ---
Social Work Progress Note Progress Note NOLAN HERNANDEZ [id number] 1975 NOLAN HERNANDEZ [id number] Pended Authorization # Client Authorization # Type of Request [id number] CONCURRENT Date of Admission/ Start of Services Requested From Submission Date 01/30/2017 02/17/2017 02/17/2017
[2017-02-17 12:12] VITALS: BP 112/64
--- NOTE | 2017-02-17 14:49 | CP SOUTH PROGRESS NOTE PSYCH ---
Psych (Inpt) Progress Note Progress Note Include the following elements, when applicable: Involvement in the active treatment of the patient with behavioral observations of the patient and the patient's response to the treatment. Review of the ongoing treatment process in the context of the treatment plan. Indication of how multi-disciplinary staff members are carrying out the treatment plan. Plans for future interventions and recommendations for revision of the treatment plan. Liaison with other physicians/providers. Progress Note: Case and treatment plan discussed in team meeting. Staff reports that the patient reported suicidal ideation around 4 PM yesterday. Patient seen at 10:46 AM with medical student. Patient was in group prior to meeting with us in the office. No longer wants me as her doctor. Wants to speak with the patient advocate. Reports she is really depressed and has anxiety. States she is still not sleeping. She reports she has a friend whom she believes will find her a place. Patient states she cannot guarantee she will not kill herself. States she will not go to a senior living. States she has never been to a senior living before. Appears awake and alert. Affect is mildly irritable. Patient advocate met with the patient. IMPRESSION: Slow progress. Continue present treatment plan. I believe that the patient has achieved maximum hospital benefit. I believe that the patient is reporting suicidal ideation as a means of extending her hospital stay. She maintains that her medications are not well-adjusted, although I believe that she is doing fine on them. Consequently, I am reluctant to make any medication changes, since I believe that any changes will lead to additional complaints and an extension of her length of stay. I believe that the patient's mood disorder has stabilized to the point where she can be safely treated on an outpatient basis.
--- NOTE | 2017-02-17 15:15 | IP INCIDENTAL NOTE PSYCH ---
Incidental Note Notation: 1) Case discussed with Dr. Borrero of [facility] [phone]. 2) Case discussed with Eliu Green APRN who last treated patient >1 year ago. She had a recent no show. He suspects that the patient has had a decline over the last year or so. She used to be able to hold down jobs.
--- NOTE | 2017-02-17 15:46 | IP INCIDENTAL NOTE PSYCH ---
Incidental Note Notation: Dr. Borrero of [facility] recommends [place] or [facility]. Next review 02/19/17.
[2017-02-17 16:54] VITALS: BP 128/86
--- NOTE | 2017-02-17 17:14 | SOCIAL WORKER PROG NOTE PSYCH ---
Social Work Progress Note Progress Note Monique from [facility] called and reported that a peer review needed to happen with Dr. Borrero today, as this case didn't seem to be meeting inpatient level of care at this point. This information was given to Dr. Cullen, who then reached out to Dr. Borrero. Received a call later from Monique at [facility] stating that the have authorized an additional 2 days with review on 02/19. They suggested possibly referrals to [facility] or [facility]. Met with Lilly who reported that she met with the patient advocate today. She didn't feel that the meeting went that well and stated she feels manipulated. She also shared that she feels that the doctor is manipulating her and she wishes she had another doctor at this point. She then went on about how she didn't complete High School and that she is slower when it comes to certain words. She feels she hasn't accurately portrayed her symptoms and feeling or has answered questions appropriately. She stated she has been too "embarrassed " to tell people she was feeling suicidal. She stated her plan would be to leave her and overdose on her meds. She stated deep down she doesn't want to kill herself, but she can't promise she would be safe if she were to leave. I asked her if she would be open to a referral to [facility] with boarding? She focused on the word boarding and kept asking what that was as I tried to explain what that meant. She then shared she had been to [facility]. She couldn't remember if it was a year or two years ago. She stated she wouldn't return, due to drugs being brought in there and it wasn't a good environment to try and be sober in. I talked with her about [facility]. She wouldn't commit to filling out an application and would only say "when I am ready to leave emotionally, I would think about that as an option, but I'm not ready." She then asked about [facility], for which I told her she would have to call 211 and set up a CAN assessment. She did say that maybe she should look at inpatient rehabs, due to not having addressed her alcoholism completely. States she hasn't been drinking and has been sober for sometime during this past year, but stated she never completed a program. After about 45 minutes of exploring what has been going on and addressing a plan, I told her we would pick up driver on that discussion tomorrow.
[2017-02-17 20:08] VITALS: BP 124/78
[2017-02-18 08:39] VITALS: BP 119/79
[2017-02-18 12:34] VITALS: BP 126/76
--- NOTE | 2017-02-18 12:34 | SOCIAL WORKER PROG NOTE PSYCH ---
Social Work Progress Note Progress Note Lilly signed Releases for [facility], [facility], [facility]. She is interested in a rehab. She wants to stay sober, but stated she is having cravings 'I want to drink." She realizes her drinking led to loss of caring for her 16yo daughter, who is with her Father. 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 She rates depression/sadness 2/10(worst) and anxiety 6/10. She is homeless, has no one she can live with. She is hopeless, staying in bed alot on unit. Strongly encouraged her to stay out of bed and go to all groups, if she wants to learn coping skills and relapse prevention. She agreed to do this. Explained at rehab she will be a part of a rigerous schedule, including AA meetings. AA is on the unit here weekly as well, encouraged her to attend this as well. She stated she was drinking "8 nips daily and 6-7 beers daily August 2016 - Nov 2016, then 12 mixed drinks every other day prior to admission to [facility]" this admit. She stated "that is not alot, I used to drink alot more." She reported she used to drink a liter of Saji Pickard daily 1 year ago and cocaine every day - "as much as I could get" from Mar 2016-June 2016, no use since then per her report. She has been clean off Heroin past 1-1/2yrs. She was smoking cannibis 1-2joints daily from August 2016- Nov 2016. She seems to be ore motivated for sobriety and to engage in treatment. Gave Lilly phone number for [facility] - she will call admissions today. Also, gave her [facility] numbers [facility]. Need to fax clinical and get PPD ordered. Gave her DSS phone number to switch from Team-Match A to Team-Match D. She will call in AM on 02/19. Can be long hold time.
--- NOTE | 2017-02-18 13:44 | CP SOUTH PROGRESS NOTE PSYCH ---
Psych (Inpt) Progress Note Progress Note Include the following elements, when applicable: Involvement in the active treatment of the patient with behavioral observations of the patient and the patient's response to the treatment. Review of the ongoing treatment process in the context of the treatment plan. Indication of how multi-disciplinary staff members are carrying out the treatment plan. Plans for future interventions and recommendations for revision of the treatment plan. Liaison with other physicians/providers. Progress Note: Case and treatment plan discussed in team meeting. Per staff, the patient reported suicidal ideation. Patient reportedly is refusing to apply to the [employer]. Stated she will not go to [facility]. We need to check into what limitations may be in place because patient is on Husky A. Visitor reportedly smelled of marijuana and was asked to leave. Patient reportedly was in bed all morning. Patient seen at 11:46 AM. Patient was sitting on her bed. Ana Vasquez LCSW was present for this interview. Apparently there are currently no beds available at [facility]. Patient states she is still really depressed but slept a lot better last night. Rates sad mood 10/10 and anxiety 6/10. Denies feeling hopeless, helpless or guilty. Does feel worthless. When asked about suicidal ideation, she paused and then indicated she was not sure. Denies homicidal ideation. Denies auditory and visual hallucinations and paranoid ideation. Reports appetite was not so good this morning. Describes energy as not good. I observed the patient later this morning when she was standing at the door to the medication room. She appeared in very good spirits, euthymic. IMPRESSION: Slow progress. Continue present treatment plan. Patient is homeless and she appears to be manipulating to stay here longer. No changes in psychopharmacotherapy are indicated at this time.
[2017-02-18 16:21] VITALS: BP 104/53
--- NOTE | 2017-02-18 17:08 | SOCIAL WORKER PROG NOTE PSYCH ---
Social Work Progress Note Progress Note Lilly told me that she needed to speak to me about things that have been really upsetting her today. I told her I would need to speak with her tomorrow. She proceeded to kneel down in my office and start talking. She was asking if she would be able to get [place] Police to get her belongings from the betty who's house she was staying out. She stated she was afraid of him and afraid to get her things without police. I told her that police don't normally do that type of thing. She went on about all of her things being there and that she is upset about leaving her belongings. I told her unfortunately that is a consequence for her poor judgement of involving herself with someone who was not a good person to be around.
[2017-02-18 19:47] VITALS: BP 130/67
[2017-02-19 08:13] VITALS: BP 124/51
--- NOTE | 2017-02-19 11:45 | SOCIAL WORKER PROG NOTE PSYCH ---
Social Work Progress Note Progress Note NOLAN HERNANDEZ [id number] 1975 NOLAN HERNANDEZ [id number] Pended Authorization # Client Authorization # Type of Request [id number] CONCURRENT Date of Admission/ Start of Services Requested From Submission Date 01/30/2017 02/19/2017 02/19/2017
--- NOTE | 2017-02-19 11:46 | SOCIAL WORKER PROG NOTE PSYCH ---
Social Work Progress Note Progress Note Faxed clinical to [facility], [facility]. Called [facility] - no beds until after Xmas, [facility]- left , asked for call back. Asked Lilly to call DSS to switch her Husky from A to D. She is not motivated to do this, she continues to reuse to call 211 and refused referral to [facility]. [facility] is full, Brandan Hull is reviewing her case today or Thursday. Brielle states she has not used drugs in over 3 weeks, and meets criteria for their PHP dual program, an appointment as made for 02/25/17 at 8:45am at [address] [place] [address] in [place].
[2017-02-19 12:27] VITALS: BP 124/71
--- NOTE | 2017-02-19 15:17 | IP INCIDENTAL NOTE PSYCH ---
Incidental Note Notation: Voicemail left for Dr. Brian Delacruz at [phone] to call me.
--- NOTE | 2017-02-19 15:32 | CP SOUTH PROGRESS NOTE PSYCH ---
Psych (Inpt) Progress Note Progress Note Include the following elements, when applicable: Involvement in the active treatment of the patient with behavioral observations of the patient and the patient's response to the treatment. Review of the ongoing treatment process in the context of the treatment plan. Indication of how multi-disciplinary staff members are carrying out the treatment plan. Plans for future interventions and recommendations for revision of the treatment plan. Liaison with other physicians/providers. Progress Note: Case and treatment plan discussed in team meeting. Staff reports that the patient is denying suicidal ideation. Patient is requesting reduction in nicotine patch dose. Described as being in a great mood. Made phone calls yesterday. Apparently wants griseofulvin restarted. We will defer this to hospitalist. Patient seen at 2:25 PM. Affect is upbeat. States she took an extra Atarax 50 mg at 3:30 AM. I will now order Atarax 100 mg q.h.s. standing. States she did a phone screen with [facility]. Patient is open to referrals to [facility], [facility] and [facility]. Wants to change from Husky A to Jamaalky D. Reports feeling better. States her family is practicing tough love. She believes that she survived the overdose because the Lord kept her here. Rates sad mood about 8/10 and anxiety 0/10. Denies feeling hopeless, helpless, worthless or guilty. Denies suicidal and homicidal ideation. Denies auditory and visual hallucinations and paranoid ideation. Reports appetite is very good. Reports energy is really, really good. IMPRESSION: Slow progress. Continue present treatment plan. Patient seems to have improved mood and affect. Monitor response to Atarax 100 mg q.h.s. standing. I lowered Nicoderm dose. Placement remains problematic.
--- NOTE | 2017-02-19 15:44 | IP INCIDENTAL NOTE PSYCH ---
Incidental Note Notation: Case reviewed with Dr. Delacruz. He has approved through discharge 02/24/17, otherwise he will review again.
[2017-02-19 16:13] VITALS: BP 126/78
--- NOTE | 2017-02-19 17:01 | SOCIAL WORKER PROG NOTE PSYCH ---
Social Work Progress Note Progress Note Another peer review was requested by [facility]. This was conducted with Dr. Cullen and Dr. Chu. Lilly was authorized for additional days. Next review is 02/25.
[2017-02-19 20:17] VITALS: BP 135/83
[2017-02-20 08:15] VITALS: BP 128/80
[2017-02-20 11:43] VITALS: BP 108/68
--- NOTE | 2017-02-20 11:56 | SOCIAL WORKER PROG NOTE PSYCH ---
See Addendum Social Work Progress Note Progress Note Pt reports Elissa Rucker will be active 02/24/17, and no longer be Elissa Julian. Pt is alert, oriented and in a good mood. She reports interest in rehabs that will accept Elissa Rucker. Will continue to explore [facility] as an option. Faxed referral to [facility].
--- NOTE | 2017-02-20 14:35 | CP SOUTH PROGRESS NOTE PSYCH ---
Psych (Inpt) Progress Note Progress Note Include the following elements, when applicable: Involvement in the active treatment of the patient with behavioral observations of the patient and the patient's response to the treatment. Review of the ongoing treatment process in the context of the treatment plan. Indication of how multi-disciplinary staff members are carrying out the treatment plan. Plans for future interventions and recommendations for revision of the treatment plan. Liaison with other physicians/providers. Progress Note: Case and treatment plan discussed in team meeting. Staff reports that the patient reported SI this morning. Described as very chatty. Patient seen at 10:52 a.m. with medical student. Staes she is okay but didn't sleep until 5:30. Reports she then slept until 8 a.m. Reports she had a great day yesterday. She is loquatious. Affect is calm and euthymic to upbeat. Reports she felt a little depressed this morning because of poor sleep. Rates sad mood 5/10 and anxiety ~9/10. Denies feeling hopeless, helpless, worthless or guilty. Denies SI, HI, AH, VH and PI. Appetite is good. Energy is "really, really good, kind of really hyper." Tolerating medications well, without complaint. Apologetic for prior irritability towards me. Reports she is now on Husky D and will be doing phone screens today, including with [facility]. IMPRESSION: Appears upbeat. I do not believe that the patient is manic or hypomanic at this time. We will not be chasing insomnia with medication changes at this time. Placement remains problematic and when we have told the patient to prepare for discharge, she has reported SI.
[2017-02-20 15:22] VITALS: BP 124/74
[2017-02-20 20:09] VITALS: BP 121/64
[2017-02-21 07:55] VITALS: BP 139/80
[2017-02-21 12:00] VITALS: BP 135/77
--- NOTE | 2017-02-21 13:59 | CP SOUTH PROGRESS NOTE PSYCH ---
Psych (Inpt) Progress Note Progress Note Include the following elements, when applicable: Involvement in the active treatment of the patient with behavioral observations of the patient and the patient's response to the treatment. Review of the ongoing treatment process in the context of the treatment plan. Indication of how multi-disciplinary staff members are carrying out the treatment plan. Plans for future interventions and recommendations for revision of the treatment plan. Liaison with other physicians/providers. Progress Note: Chart reviewed, progress discussed with nursing staff. Interviewed patient this morning. As seen in prior notes, patient is hyperverbal though fully interruptible. She reports her mood continues to improve, notes a number of optimistic aspects in her life, and denies suicidal or homicidal ideation. She was mildly perseverative regarding insomnia, though the overnight sleep report reports that she slept adequately and I discussed with her that her insomnia is a long-standing problem and has been addressed with the primary team so no medication changes will be made this weekend. Vitals are reviewed and were within normal limits. There are no new laboratories results today. Mental status exam: Well groomed female of apparent stated age. Cooperative, pleasant, no abnormal movements, no psychomotor agitation or retardation. Speech was plentiful in amount, fully interruptible. Mood was "better ", affect was mildly gregarious, congruent, mildly labile. Thought process was somewhat circumstantial though generally logical and linear. She denied any suicidal or homicidal ideation. She was focused on insomnia. No she was redirectable. She denied any perceptual disturbances. Her cognition was grossly intact. Her insight and judgment was fair. Assessment and plan: Patient continues to improve. Will continue present management as per primary team.
[2017-02-21 15:36] VITALS: BP 134/74
[2017-02-21 19:17] VITALS: BP 128/73
[2017-02-22 08:17] VITALS: BP 119/55
[2017-02-22 12:31] VITALS: BP 145/71
--- NOTE | 2017-02-22 13:08 | CP SOUTH PROGRESS NOTE PSYCH ---
Psych (Inpt) Progress Note Progress Note Include the following elements, when applicable: Involvement in the active treatment of the patient with behavioral observations of the patient and the patient's response to the treatment. Review of the ongoing treatment process in the context of the treatment plan. Indication of how multi-disciplinary staff members are carrying out the treatment plan. Plans for future interventions and recommendations for revision of the treatment plan. Liaison with other physicians/providers. Progress Note: Chart reviewed, progress discussed with nursing staff. Interviewed patient this morning. Again, hyperverbal. Again, she reports not being able to sleep last night. "This is the 16th night in a row ". Despite this, the nursing report is clear that she appeared to be sleeping all night long. Otherwise, she reports her mood is good, denies any medication side effects, denies suicidal or homicidal ideation. She describes a number plans for finding appropriate aftercare. Vitals are reviewed and were within normal limits. There are no new laboratories results today. Mental status exam: Well groomed female of apparent stated age. Cooperative, pleasant, no abnormal movements, no psychomotor agitation or retardation. Speech was plentiful in amount, fully interruptible. Mood was "good", affect was euthymic, congruent, mildly labile. Thought process was somewhat circumstantial though generally logical and linear. She denied any suicidal or homicidal ideation. She was focused on insomnia. No she was redirectable. She denied any perceptual disturbances. Her cognition was grossly intact. Her insight and judgment was fair. Assessment and plan: Patient continues to improve. It is unclear as to the validity of her insomnia complaints based on objective reporting from unit staff. Will continue present management as per primary team.
[2017-02-22 15:52] VITALS: BP 132/87
[2017-02-22 19:50] VITALS: BP 142/85
[2017-02-23 08:45] VITALS: BP 127/71
[2017-02-23 12:21] VITALS: BP 132/86
--- NOTE | 2017-02-23 14:06 | CP SOUTH PROGRESS NOTE PSYCH ---
Psych (Inpt) Progress Note Progress Note Include the following elements, when applicable: Involvement in the active treatment of the patient with behavioral observations of the patient and the patient's response to the treatment. Review of the ongoing treatment process in the context of the treatment plan. Indication of how multi-disciplinary staff members are carrying out the treatment plan. Plans for future interventions and recommendations for revision of the treatment plan. Liaison with other physicians/providers. Progress Note: Dr. Saldivar's notes reviewed. Medication list reviewed. Case discussed with nurse, who reports that the patient's boyfriend visited. Euthymic. Apologetic for past negative behaviors. Denying suicidal ideation. Patient seen at 11:06 AM. Feels good. Has no complaints. Reports she slept beautifully last night. Affect is upbeat/ebullient. Reports she watch midnight mass from the [employer] last night. Reports she slept like a baby. Reports she is not sad but could be a little bit hyper. She appears somewhat hypomanic. Reports she has been doing phone screens and she has a reason to be happy. Reports brother will be bringing patient's daughter in to visit today and stepfather will also be visiting. Rates sad mood and anxiety both 0/10. Denies feeling hopeless, helpless, worthless or guilty. Denies suicidal and homicidal ideation. Denies auditory and visual hallucinations and paranoid ideation. Appetite is great. Energy is high. Tolerating medications well, without complaint. Reports she had a throat problem in the past with lithium. She agrees to increase Latuda dose to 100 mg daily. IMPRESSION: Slow progress. Continue present treatment plan. Appears hypomanic. Monitor response to increase in Latuda dose to 100 mg daily. Placement remains problematic.
[2017-02-23 15:59] VITALS: BP 136/80
[2017-02-23 20:05] VITALS: BP 122/83
[2017-02-24 08:21] VITALS: BP 128/50
[2017-02-24 12:33] VITALS: BP 119/75
--- NOTE | 2017-02-24 13:51 | CP SOUTH PROGRESS NOTE PSYCH ---
Psych (Inpt) Progress Note Progress Note Include the following elements, when applicable: Involvement in the active treatment of the patient with behavioral observations of the patient and the patient's response to the treatment. Review of the ongoing treatment process in the context of the treatment plan. Indication of how multi-disciplinary staff members are carrying out the treatment plan. Plans for future interventions and recommendations for revision of the treatment plan. Liaison with other physicians/providers. Progress Note: Case and treatment plan discussed in team meeting. Had multiple visitors yesterday. Wearing makeup. Slept very well. Patient seen at 12:50 PM. States she is doing really well. States she had to confess that she was paranoid on admission, that the mafia was after her, but she no longer feels this way. Affect is upbeat. States that she had an awesome day yesterday. Reports brother will now let her stay with him after she completes a rehab. She hopes to go to [place]. Mood is really good. Rates sad mood 0/10 and anxiety about 3/10. Denies feeling hopeless, helpless, worthless or guilty. Denies suicidal and homicidal ideation. Denies auditory and visual hallucinations. Reports sleep is really good and that she slept great last night. Appetite is great. Energy is good. Tolerating medications well, without complaint. Complains of swelling of the left foot/ankle. IMPRESSION: Slow progress. Continue present treatment plan. Placement remains problematic. We will ask hospitalist to evaluate swollen foot.
--- NOTE | 2017-02-24 15:20 | SOCIAL WORKER PROG NOTE PSYCH ---
See Addendum Social Work Progress Note Progress Note SW met with pt. Pt denies SI/HI/AH/VH at present. SHe said she has a phone screen for [facility] . She said Brielle needs confirmation that her insurance is [employer] now and needs updated notes for clinical. She also requested clinical be faxed to [facility]. Pt is interested in [employer] and would like a phone number for it . She denies having significant cravings and rates 2/10 for cravings. Pt said she is motivated for a program. Her brohter potentialy is willing to take her if she completes a program.
[2017-02-24 16:39] VITALS: BP 128/73
[2017-02-24 20:17] VITALS: BP 130/78
[2017-02-25 07:47] VITALS: BP 125/68
[2017-02-25 12:19] VITALS: BP 117/69
--- NOTE | 2017-02-25 14:17 | CP SOUTH PROGRESS NOTE PSYCH ---
Psych (Inpt) Progress Note Progress Note Include the following elements, when applicable: Involvement in the active treatment of the patient with behavioral observations of the patient and the patient's response to the treatment. Review of the ongoing treatment process in the context of the treatment plan. Indication of how multi-disciplinary staff members are carrying out the treatment plan. Plans for future interventions and recommendations for revision of the treatment plan. Liaison with other physicians/providers. Progress Note: Case and treatment plan discussed in team meeting. Staff reports that the patient is appearing somewhat hypomanic. Has nowhere to go. Patient was seen by Dr. Lori Echevarria for foot/ankle edema. Patient seen at 11:57 AM. She reports she feels well. She is wearing makeup. Affect is upbeat but does not appear hypomanic or manic. Reports a rehab bed is open at [place]. States that her Husky D is pending. Feels really good except for swelling at bilateral lower extremities and her hands. Reports mood is great/fine. Rates sad mood and anxiety both 0/10. Denies feeling hopeless, helpless, worthless or guilty. Denies active and passive suicidal ideation. Denies homicidal ideation. Denies auditory and visual hallucinations and paranoid ideation. Reports sleep was great last night and she was up at 6 AM. Reports appetite is great. Energy is pretty good. Tolerating medications well, without complaint. IMPRESSION: Slow progress. Continue present treatment plan. Placement remains problematic.
--- NOTE | 2017-02-25 15:04 | SOCIAL WORKER PROG NOTE PSYCH ---
Social Work Progress Note Progress Note Lilly was dressed with her hair and makeup done today, which I hadn't seen previously. She reported feeling good and working on trying to get into a program. I told her that as of this morning our business office checked her insurance status and it was still Husky A. She said she called on Thursday and that they told her it would take 72 hours to change. I told her it may be beneficial to try to call DSS again and see if they can fax over something in writing reflecting this upcoming change. This way we can send it to proposed rehabs. She said she was willing to call. She shared that she had a nice visit with her Brother and her daughter over the holiday weekend. She stated her Brother said he would help her with a place to stay if she successfully completes a rehab. She was happy to have his support and reported that she has never felt closer to him. Lilly signed a release for [facility]. I asked how he mood was and if she thought she was becoming a little hypomanic? She said she could "slow down a little", but doesn't feel she is really manic. Faxed referral to [facility]. Reports she has a phone screening with [facility] on Thursday.
[2017-02-25 15:48] VITALS: BP 134/75
[2017-02-25 19:30] VITALS: BP 136/83
[2017-02-25 22:33] VITALS: BP 127/74
[2017-02-26 07:43] VITALS: BP 133/81
--- NOTE | 2017-02-26 11:40 | SOCIAL WORKER PROG NOTE PSYCH ---
Social Work Progress Note Progress Note Lilly called [facility] early this morning to try and get documentation that her Husky A would be changed to Husky D. She was able to speak to a education courses sales representative and get a faxed letter sent to this database report writer indicating this change. Contacted Isrrael (program development manager at [facility] Isrrael completed Lilly's screening and asked for some additional information to be faxed to her. Isrrael later called and stated she was still concerned about Lilly not have a "solid discharge plan." She said she tried to call [facility], but they won't give her information, [facility] stated they didn't have her referral, and they haven't been able to speak with the coordinator at [facility]. Isrrael stated they would discuss it and get back to me. Re-faxed clinical to [facility]. Called [facility] and left a message. Spoke with Meryl Henson from [facility] in [place]. Discussed referral and then had Lilly speak with Meryl further on the phone about her discharge plan. Meryl stated they will accept Lilly into their program tomorrow. Their staff will not be able to p/u Lilly tomorrow and so transportation will need to be arranged and IOP set up. Called Lilly's Brother Bill [phone] and left a message about discharge plan and if he could help secure her vehicle. Called [facility] to secure transport for tomorrow. They have her in the system , but could not confirm the time of p/u. Assured me it would most likely be after 10am tomorrow.
[2017-02-26 11:53] VITALS: BP 115/64
--- NOTE | 2017-02-26 14:13 | CP SOUTH PROGRESS NOTE PSYCH ---
Psych (Inpt) Progress Note Progress Note Include the following elements, when applicable: Involvement in the active treatment of the patient with behavioral observations of the patient and the patient's response to the treatment. Review of the ongoing treatment process in the context of the treatment plan. Indication of how multi-disciplinary staff members are carrying out the treatment plan. Plans for future interventions and recommendations for revision of the treatment plan. Liaison with other physicians/providers. Progress Note: Case and treatment plan discussed in team meeting. Staff reports that the patient has been flirtatious towards a male peer. We are waiting to hear from [place] [facility]. Patient's Husky D will be effective 03/02/17. Patient seen at 11:47 a.m. Reports that it is going well. Reports that she slept great last night and was up at 6 a.m. Has make-up on. Reports she lost rehab bed at [place]. Reports Husky D will be in effect on 03/02/17. Hopes for a Respite bed today. Affect is animated/euthymic. Mood is really good. Sad 0/ 10. Anxiety 0/10. Denies feeling hopeless, helpless, worthless or guilty. Denies SI, HI, AH, VH and PI. Appetite: really good. Energy: really good. Tolerating medications well. Agrees to increase Latuda dose to 120 mg daily. Reports history of inappropriate laughing when others speak. Reports she has been able to control this type of laughter better lately. IMPRESSION: Slow progress. Continues present treatment plan. Monitor response to increase in Latuda dose. Placement remains problematic.
[2017-02-26 15:42] VITALS: BP 132/76
[2017-02-26 20:00] VITALS: BP 134/75
[2017-02-27 08:14] VITALS: BP 139/79
[2017-02-27] MEDS ORDERED: FLUTICASONE PRO16 GM NAS (09:52)
[2017-02-27] MEDS ORDERED: MIRALAX119 GM PO (09:52)
[2017-02-27] MEDS ORDERED: HYDROXYZINE HCL50 M1 PO ×2 (09:52)
[2017-02-27] MEDS ORDERED: SYMBICORT 16010.2 GM INH (09:52)
[2017-02-27] MEDS ORDERED: TRAZODONE HCL150 M1 PO (09:52)
[2017-02-27] MEDS ORDERED: DAILY MULTIPLE1 EACH PO (09:52)
[2017-02-27] MEDS ORDERED: LATUDA120 M1 PO (09:52)
[2017-02-27] MEDS ORDERED: NICOTINE GUM4 MG PO (09:52)
[2017-02-27] MEDS ORDERED: LAMICTAL25 M1 PO (09:52)
[2017-02-27] MEDS ORDERED: GABAPENTIN400 M2 PO (09:52)
[2017-02-27] MEDS ORDERED: NICOTINE PATCH1 EAC1 TOP (09:52)
[2017-02-27] MEDS ORDERED: GRISEOFULV125 MG/51 PO (09:52)
[2017-02-27] MEDS ORDERED: PRAZOSIN HCL2 M1 PO (09:52)
[2017-02-27] MEDS ORDERED: MONTELUKAST SOD10 M1 PO (09:52)
[2017-02-27] MEDS ORDERED: VENTOLIN HFA18 GM INH (09:52)
--- NOTE | 2017-02-27 10:01 | Patient Discharge Instructions ---
Psych Discharge Inst General Discharge Information Reason for Admission: Worsening depression. We later learned that the patient was paranoid about the mafia. Psy Discharge Primary Diag+ Bipolar d/o with psychotic features Psy Discharge Secondary Diag+ Alcohol use d/o in remission S/p otitis externa L ear S/p serous otitis L ear Tinea Asthma Summary Tests/Major Procedures BUN 19 H Urine drug screen negative. test negative. Urine negative for chlamydia, GC. EKG normal. Studies Pending at DC: None. Patient Instructions Contact Information Your Psychiatrist on [facility] was Danny Cullen MD * If you are experiencing an emergency related to this hospitalization, please call [phone] to contact the treating psychiatrist or the psychiatrist-on- call. * To Request a copy of your medical records, please contact the Medical Records Department at [phone]. * To request results of studies pending at the time of discharge, please call [phone]. * Continue your Medications until directed to stop by your Healthcare provider. General Medication Information Please continue to take your new medications and your continued home medications , unless otherwise indicated on your discharge medication list, or unless directed by your MD or DATA CLERK to stop them. Special Instructions Diet Regular Activity Normal Other Inst/Recommendations See PCP for edema and other medical issues and abnormal labs. - Tobacco Use Treatment Offered Post DC Medications Offered: Script Given-See Med List Post DC Tobacco Treatment Plan: [facility] Program Appt Date: 03/11/17 Program Appt Time: 1600 - EtOH/Drug Use D/O Treatment Offered Post DC Medications Offered: Med Not Indicated for D/O Post DC EtOH/SubAbuse [place] Plan: Other SubAbuse/Dual Pgm ([facility]) Program Appt Date: 03/04/17 Program Appt Time: 0900 Metabolic Screening () Not Applicable, patient not on a neuroleptic. OR () Patient on a neuroleptic(s) . Enter below results for Hemoglobin A1C, and lipid panel if obtained during the last 365 days. BMI: 28.700 Blood Pressure: 139/79 Laboratory Results From [facility] (If applicable): Lipid panel and hemoglobin a1c normal. Advance Directives Does the Patient have Medical Advance Directives No/Refused further info Does Pt have Psychiatric Advance Directives? No/Refused further info Does Patient have a Designated Surrogate Decision Maker: No Information About Psychiatric Advance Directives Provided? Refused Discharge Plan Post Hospital Treatment Plan: [facility] [place] 02/27/17. [facility] intake 03/04/17.
--- NOTE | 2017-02-27 10:08 | SOCIAL WORKER PROG NOTE PSYCH ---
Social Work Progress Note Progress Note Called [facility] and scheduled an IOP intake for 03/04/17 at 10am. Lilly got ready quickly this morning, as her ride from [facility] showed up before 10am and then the hazardous materials tanker driver left due to discharge orders not being done in the amount of time the hazardous materials tanker driver would wait. [facility] will send another hazardous materials tanker driver. Lilly is excited about her discharge plan. Informed Lilly of her intake appt. with [facility]. Explained that she needs to follow up with IOP for continued tx and to get her medication prescribed while she is waiting to go to a rehab. Called [facility] and spoke with staff member Dorothy. She reported that Lilly would need meds called into [facility] in [place]. A hazardous materials tanker driver arrived around 11am and Lilly left.
--- NOTE | 2017-02-27 11:30 | SOCIAL WORKER PROG NOTE PSYCH ---
Social Work Progress Note Faxed Referral(s) 1 Referred To: [facility] Transition of Care Documents sent: Health Summary Faxed to: FOOD CLERK Fax #: [phone] Faxed by: Hui Leos Date faxed: 02/27/17 Time Faxed: [phone] Faxed Referral(s) 2 Referred To: [facility] Transition of Care Documents sent: Health Summary Faxed to: [facility] Fax #: [phone] Faxed by: Hui Leos Date faxed: 02/27/17 Time Faxed: [phone]
--- NOTE | 2017-02-27 11:48 | CP SOUTH PROGRESS NOTE PSYCH ---
Psych (Inpt) Progress Note Progress Note Include the following elements, when applicable: Involvement in the active treatment of the patient with behavioral observations of the patient and the patient's response to the treatment. Review of the ongoing treatment process in the context of the treatment plan. Indication of how multi-disciplinary staff members are carrying out the treatment plan. Plans for future interventions and recommendations for revision of the treatment plan. Liaison with other physicians/providers. Progress Note: Case and treatment plan discussed in team. Staff reports that the patient is very happy. [facility] [place]. [facility] be [facility] with intake on 03/04/17. Patient seen at 10:01 AM. Reports feeling good. Has no complaints. She has makeup on. Affect is calm and euthymic. She does not appear hypomanic or manic. Mood is great. Rates sad mood 0/10 and anxiety about 2/10. Denies feeling hopeless, helpless, worthless or guilty. Denies active and passive suicidal ideation. Denies homicidal ideation. Denies auditory and visual hallucinations and paranoid ideation. Reports sleep is great and appetite is good. Reports energy is really good but not too, too high, a little more mellow this morning. Tolerating medications well, without complaint. Feels ready and safe for discharge. IMPRESSION: Condition improved. Okay for discharge today with plan as above.
--- NOTE | 2017-02-27 13:00 | DISCHARGE SUMMARY REPORT-PSYCH ---
Visit Information Visit Dates/Diagnosis' Admission Date: 01/30/17 Discharge Date: 02/27/17 Reason for Admission: Worsening depression. We later learned that the patient was paranoid about the mafia. Psy Discharge Primary Diag: Bipolar d/o with psychotic features Psy Discharge Secondary Diag: Alcohol use d/o in remission S/p otitis externa L ear S/p serous otitis L ear Tinea Asthma Hospital Course Significant Lab Findings: BUN 19 H Urine drug screen negative. test negative. Urine negative for chlamydia, GC. EKG normal. Course Complications: Patient reported some extremity edema which was monitored by hospitalists. Consultations: Patient was seen for admission H&P by Dr. Aurelia Duggan, who noted: "41F PMH bipolar disorder admitted to [facility] with anxiety and depression and no acute medical issues. Plan - Management by psychiatry - Continue Griseofulvin - Reconsult if necessary" Dr. Jensen Gamble saw the patient for left ear discomfort. He noted: "#Otitis Externa and Serous Otitis Left Ear- some fluid behind TM due to adenopathy. Plan: Will give trial of Cortisporin Otic Suspension 4 gtt tid to left ear x 7 days. If not improving in 1-2 days will consider po Abx (Augmentin). #Tinea- on Griseofulvin. Needs renewal. Plan: Renew Griseofulvin." Allergies: Coded Allergies: No Known Allergies (01/29/17) Hospital Course/TX Response: The patient was monitored on the unit for safety, psychosis and mood disorder. She apparently presented with PI about the mafia but was initially guarded about it. She reported having a bad reaction to lithium, reporting that her throat hurt and she had some nausea. [place] was discontinued. Latuda was used with dose tapered up to 120 mg daily (with food). Please see discharge medication list below. Housing was a major problem during this hospital stay, and as patient's clinical condition stabilized and we recommended discharge, patient would report suicidal ideation. Patient's mood has stabilized. Suicidal ideation and psychosis have remitted. Progress note from date of discharge, 02/27/17: Case and treatment plan discussed in team. Staff reports that the patient is very happy. [facility] [place]. She will be going [facility] with intake on 03/04/17. Patient seen at 10:01 AM. Reports feeling good. Has no complaints. She has makeup on. Affect is calm and euthymic. She does not appear hypomanic or manic. Mood is great. Rates sad mood 0/10 and anxiety about 2/10. Denies feeling hopeless, helpless, worthless or guilty. Denies active and passive suicidal ideation. Denies homicidal ideation. Denies auditory and visual hallucinations and paranoid ideation. Reports sleep is great and appetite is good. Reports energy is really good but not too, too high, a little more mellow this morning. Tolerating medications well, without complaint. Feels ready and safe for discharge. IMPRESSION: Condition improved. Okay for discharge today with plan as above. Discharge HBIPS - Tobacco Use Treatment Offered Post DC Medications Offered: Script Given-See Med List Post DC Tobacco Treatment Plan: [facility] Program Appt Date: 03/11/17 Program Appt Time: 1600 - EtOH/Drug Use D/O Treatment Offered Post DC Medications Offered: Med Not Indicated for D/O Post DC EtOH/SubAbuse [place] Plan: Other SubAbuse/Dual Pgm ([facility]) Program Appt Date: 03/04/17 Program Appt Time: 1000 Metabolic Screening - Screen if on a Neuroleptic Medication - Metabolic screening should include: - Blood Pressure, BMI, Glucose or Hgb A1c, & a - Lipid profile from within the past 365 days. Metabolic Screening () Not Applicable, patient not on a neuroleptic. OR () Patient on a neuroleptic(s) . Enter below results for Hemoglobin A1C, and lipid panel if obtained during the last 365 days. BMI: 28.700 Blood Pressure: 139/79 Laboratory Results From [facility] (If applicable): [x] Lab Cholesterol 161 MG/DL 02/03/1722 Cholesterol/HDL Ratio 3 % 02/03/17621 HDL Cholesterol 47 mg/dL 02/03/17621 Hemoglobin A1c 5.0 % 02/03/17621 LDL Cholesterol, Calc 93 mg/dL 02/03/17621 Triglycerides 109 mg/dL 02/03/17621 Discharge Instructions General Discharge Information Multiple Neuroleptics: ([x]) Not Applicable OR Document below three failed attempts at monotherapy, or a plan to taper to monotherapy, or augmentation of Clozapine. () Discharge Diet Regular Discharge Activity Normal DC Disposition: [facility] [place] [address] [place], [place] [phone] admission 02/27/17 Referrals Ordered Referrals Provider Referral 02/27/17 For Groups: [facility] [place] [address] [place], [place] [phone] admission 02/27/17 Provider Referral 03/04/17 For Groups: [[facility]] [facility] dual IOP for mental health and substance use [address] [place], [place] [phone] appt. 03/04/17 10am Prescriptions Stop taking the following medications: Trazodone HCl (Trazodone HCl) 100 MG TABLET ORAL Every night Qty = 28 Lamotrigine (Lamotrigine) 25 MG TABLET ORAL TWICE DAILY Qty = 28 [place] Carbonate ([place] Carbonate ER) 450 MG TABLET.ER ORAL Q12H Qty = 28 Clonazepam (Clonazepam) 0.5 MG TABLET ORAL DAILY NEEDED as needed for ANXIETY Qty = 7 Gabapentin (Gabapentin) 100 MG CAPSULE ORAL THREE TIMES DAILY Qty = 84 Hydroxyzine HCl (hydrOXYzine HCl) (Unknown Strength) TABLET Qty = 30 Bupropion HCl (Bupropion XL) (Unknown Strength) TAB.ER.24H Qty = 30 Quetiapine Fumarate (Quetiapine Fumarate) (Unknown Strength) TABLET Qty = 30 Griseofulvin Ultramicrosize (Griseofulvin Ultramicrosize) 250 MG TABLET ORAL DAILY Qty = 28 Continue taking these medications: Nicotine Polacrilex (Nicotine Gum) 4 MG GUM 1 Gum ORAL Q2H as needed for SMOKING CESSATION Qty = 56 Comments: Last Taken:02/26/17 Time:1955 This prescription has been renewed Prazosin HCl (Prazosin HCl) 2 MG CAPSULE 1 Capsule ORAL Every night Qty = 14 Comments: Last Taken:02/26/17 Time:2116 This prescription has been renewed Multivitamin (Daily Multiple Vitamin) 1 EACH TABLET 1 Tablet ORAL DAILY Qty = 14 Comments: Last Taken:02/27/17 Time:822 This prescription has been renewed Start taking the following new medications: Albuterol Sulfate (Ventolin Hfa) 90 MCG HFA.AER.AD 2 Puff Inhale through mouth EVERY 4 HOURS NEEDED as needed for SHORTNESS OF BREATH Qty = 1 No Refills Comments: Last Taken:02/02/17 Time:2043 Nicotine (Nicotine Patch) 7 MG/24 HOUR PATCH.TD24 7 Milligram On the skin DAILY Qty = 14 No Refills Comments: Last Taken:02/27/17 Time:1000 Gabapentin (Gabapentin) 400 MG CAPSULE 2 Capsule ORAL THREE TIMES DAILY Qty = 84 No Refills Comments: Last Taken:02/27/17 Time:08 AM Lamotrigine (Lamictal) 25 MG TABLET 2 Tablet ORAL TWICE DAILY Qty = 56 No Refills Comments: Last Taken:02/27/17 Time:08 Hydroxyzine Hydrochloride (Atarax) 50 MG TAB 50 Milligram ORAL EVERY SIX HOURS NEEDED as needed for anxiety or allergies Qty = 28 No Refills Comments: Last Taken:02/27/17 Time:08 AM Hydroxyzine Hydrochloride (Atarax) 50 MG TAB 2 Tablet ORAL AT BEDTIME Qty = 28 No Refills Comments: Last Taken:02/26/17 Time:2117 Budesonide/Formoterol Fumarate (Symbicort 160-4.5 Mcg Inhaler) 160 MCG-4.5 MCG/ ACTUATION HFA.AER.AD 2 Puff Inhale through mouth TWICE DAILY Qty = 1 No Refills Comments: Last Taken:02/27/17 Time:822AM Montelukast Sodium (Montelukast Sodium) 10 MG TABLET 10 Milligram ORAL AT BEDTIME Qty = 14 No Refills Comments: Last Taken:02/26/17 Time:2114 Fluticasone Propionate (Fluticasone Propionate) 50 MCG/ACTUATION SPRAY.SUSP 1 [place] In the nose TWICE DAILY Qty = 1 No Refills Comments: Last Taken:02/27/17 Time:08 AM Polyethylene Glycol 3350 (Miralax) 17 GRAM/DOSE POWDER 17 Gram ORAL DAILY @8 AM Qty = 1 No Refills Comments: Last Taken:02/27/17 Time:818 Griseofulvin, Microsize (Griseofulvin) 125 MG/5 ML ORAL.SUSP 10 Milliliters ORAL TWICE DAILY Qty = 40 No Refills Comments: Last Taken:02/27/17 Time:818 Trazodone HCl (Trazodone HCl) 150 MG TABLET 1 Tablet ORAL AT BEDTIME Qty = 14 No Refills Comments: Last Taken:02/26/17 Time:2127 Lurasidone HCl (Latuda) 120 MG TABLET 1 Tablet ORAL DAILY Qty = 14 No Refills Instructions: take with food Comments: Last Taken:02/27/17 Time:08 Other Inst/Recommendations See PCP for edema and other medical issues and abnormal labs. Copies To: [facility]
== END 2017-02-27 11:10 | disposition other institution (70) | DRG 753 ==
LOC: ERH 17:22 → CP SOUTH 01-30 17:27 → ERHI 01-30 17:27 → ENRESERVDT 01-30 17:30 → ENRESERVTM 01-30 17:30 → ENTRNSPT 01-30 17:53 → CP SOUTH 01-30 18:16 → CMPTRNSPT 01-30 18:24 → CP SOUTH 02-02 13:45
PROVIDERS: Emergency Medicine; Psychiatry & Neurology Psychiatry; Student in an Organized Health Care Education/Training Program
DX: F31.5 Bipolar disorder, current episode depressed, severe, with psychotic features (principal); J45.909 Unspecified asthma, uncomplicated; B35.9 Dermatophytosis, unspecified; Z87.898 Personal history of other specified conditions
CPT/HCPCS: 36415; 80307; 81025; 82436; 86803; 87389; 87491; 87591; 93005; 93010; G0463; G0480; J3101; J3490